=== PATIENT | male | born 1975 | race Caucasian/White ===

== ENCOUNTER 2016-12-16 16:52 | Inpatient (IN) | payer SELFPAY ==
--- NOTE | 2016-12-16 17:41 | EDM.PDOC ---
ED HPI GENERAL MEDICAL PROBLEM - General Chief Complaint: Drug or Alcohol Abuse Stated Complaint: SENT OVER FROM CLINIC Time Seen by Provider: 12/16/16 17:17 Source of Information: Reports: Patient, Family, RN Notes Reviewed History Limitations: Reports: No Limitations - History of Present Illness INITIAL COMMENTS - FREE TEXT/NARRATIVE: 41-year-old gentleman presents emergency department a question of drug overdose he denies this however family is concerned he may have taken this 30 tablets of Xanax 0.25 for a total of 7.5 mg. He does admit to being somnolent and more fatigue after starting medication prescription was written for 0.25 mg by mouth three a day when necessary for anxiety and panic attacks, he also admits to having chest pain for the last several months estimated pill count: possible 30 xanax total of 7.5 mg possible 22 tables of 25 mg vistral for a total of 550 mg possible gabapention unknown amount Discussed case with poison control recommended to routine labs supportive care repeat EKG in 2-3 hours for monitoring of QRS - Related Data Allergies Allergy/AdvReac Type Severity Reaction Status Date / Time aspirin Allergy Other Verified 12/16/16 17:00 flu vaccine Allergy Other Uncoded 12/16/16 17:00 Home Meds: Home Meds ALPRAZolam [Alprazolam] 1 tab PO TID PRN 12/16/16 [History] Acetaminophen [Tylenol Extra Strength] 3 tab PO ASDIRECTED PRN 12/16/16 [History ] Chlorthalidone 25 mg PO DAILY 12/16/16 [History] FLUoxetine [PROzac] 3 tab PO DAILY 12/16/16 [History] Gabapentin [Neurontin] 300 mg PO TID 12/16/16 [History] Ibuprofen 600 mg PO TID 12/16/16 [History] Omeprazole 40 mg PO DAILY 12/16/16 [History] Potassium Chloride [Potassium Chloride] 1 tab PO DAILY 12/16/16 [History] amLODIPine [Norvasc] 5 mg PO DAILY 12/16/16 [History] busPIRone [Buspar] 1 tab PO BID 12/16/16 [History] hydrOXYzine Pamoate [Hydroxyzine Pamoate] 1 cap PO TID PRN 12/16/16 [History] Past Medical History Cardiovascular History: Reports: High Cholesterol, Hypertension Respiratory History: Reports: Asthma, Sleep Apnea, Other (See Below) Other Respiratory History: hx of tracheostomy Neurological History: Reports: Other (See Below) Other Neuro History: guillan barre. Psychiatric History: Reports: Addiction, Anxiety Social & Family History - Tobacco Use Smoking Status *Q: Former Smoker Used Tobacco, but Quit: Yes Month Tobacco Last Used: 0 - Recreational Drug Use Recreational Drug Use: Yes ED ROS GENERAL - Review of Systems Review Of Systems: See Below Constitutional: Reports: Fatigue, Other (Somnolent) HEENT: Reports: No Symptoms Respiratory: Reports: No Symptoms Cardiovascular: Reports: Chest Pain GI/Abdominal: Reports: No Symptoms : Reports: No Symptoms Musculoskeletal: Reports: No Symptoms Skin: Reports: No Symptoms Neurological: Reports: No Symptoms ED EXAM, BEHAVIORAL HEALTH - Physical Exam Exam: See Below Text/Narrative:: General: Male, not in any distress, alert and oriented x3 HEENT: head is atraumatic normocephalic, eyes pupils equal round reactive to light, sclera clear no conjunctivitis appreciated. Ears tympanic membranes clear and luna landmarks and light reflex are present bilaterally canals are clear. Nose no septal deviation, nares are clear, no blood present. Mouth mucosa is moist and pink no erythema or exudate noted in soft palate, tongue is midline uvula is midline, dentition is intact. Neck: Supple no thyromegaly no tracheal deviation. Nodes: Cervical nodes subclavicular nodes nontender no palpable lymphadenopathy noted. Lungs: clear to auscultation bilaterally with symmetrical respirations, no adventitious noise appreciated. CV: Regular rate and rhythm S1 and S2 appreciated no murmurs rubs or gallops noted. Abdomen: Soft, obese, nontender, no palpable masses or organomegaly appreciated , no distention no guarding bowel sounds are present, . Neuro: Cranial nerves II through XII grossly intact Skin: Warm and dry, intact Extremities: No lower extremity edema appreciated, COURSE, BEHAVIORAL HEALTH COMP - Course Vital Signs: Last Vital Signs Temp 98.9 F 12/16/16 16:56 Pulse 85 12/16/16 16:56 Resp 18 12/16/16 16:56 BP 127/67 12/16/16 16:56 Pulse Ox 96 12/16/16 16:56 Orders, Labs, Meds: Active Orders 24 hr Category Date Time Status Cardiac Monitoring [RC] .As Directed Care 12/16/16 17:27 Active EKG Documentation Completion [RC] ASDIRECTED Care 12/16/16 17:27 Active Peripheral IV Care [RC] . DIRECTED Care 12/16/16 18:04 Active DRUG SCREEN, URINE [URCHEM] Stat Lab 12/16/16 17:26 Uncollected SALICYLATE [CHEM] Stat Lab 12/16/16 18:03 Received UA W/MICROSCOPIC [URIN] Stat Lab 12/16/16 17:26 Uncollected Potassium Chloride [KCL 20 MEQ in Water 100 ML] 20 meq Med 12/16/16 18:04 Active Premix Bag 1 bag IV ONETIME Sodium Chloride 0.9% [Saline Flush] Med 12/16/16 18:04 Active 10 ml FLUSH ASDIRECTED PRN Peripheral IV Insertion Adult [OM.PC] Urgent Oth 12/16/16 18:04 Ordered EKG 12 Lead [EK] Stat Ther 12/16/16 17:27 Ordered Medication Orders Potassium Chloride 20 meq/ (Premix) 100 mls @ 50 mls/hr IV ONETIME ONE Stop: 12/16/16 20:03 Sodium Chloride (Saline Flush) 10 ml FLUSH ASDIRECTED PRN PRN Reason: Keep Vein Open Laboratory Tests 12/16/16 12/16/16 12/16/16 Range/Units 17:26 17:26 18:03 WBC 10.2 (4.5-11.0) K/uL RBC 4.52 (4.30-5.90) M/uL Hgb 13.0 (12.0-15.0) g/dL Hct 38.6 L (40.0-54.0) % MCV 85 (80-98) fL MCH 29 (27-31) pg MCHC 34 (32-36) % Plt Count 338 (150-400) K/uL Neut % (Auto) 60 (36-66) % Lymph % (Auto) 24 (24-44) % [place] % (Auto) 10 H (2-6) % Eos % (Auto) 6 H (2-4) % Baso % (Auto) 1 (0-1) % Sodium 141 (140-148) mmol/L Potassium 2.9 L* (3.6-5.2) mmol/L Chloride 102 (100-108) mmol/L Carbon Dioxide 30 (21-32) mmol/L Anion Gap 11.9 (5.0-14.0) mmol/L BUN 18 (7-18) mg/dL Creatinine 1.2 (0.8-1.3) mg/dL Est Cr Clr Drug Dosing 89.70 mL/min Estimated GFR (MDRD) > 60 (>60) Glucose 115 H (74-106) mg/dL Calcium 8.0 L (8.5-10.1) mg/dL Total Bilirubin 0.5 (0.2-1.0) mg/dL AST 28 (15-37) U/L ALT 42 (12-78) U/L Alkaline Phosphatase 82 (46-116) U/L Troponin I < 0.017 (0.000-0.056) ng/mL Total Protein 7.1 (6.4-8.2) g/dL Albumin 3.7 (3.4-5.0) g/dL Globulin 3.4 (2.3-3.5) g/dL Albumin/Globulin Ratio 1.1 L (1.2-2.2) Acetaminophen 0.0 L (10.0-30.0) ug/mL Medications Generic Name Dose Route Start Last Admin Trade Name Freq PRN Reason Stop Dose Admin Potassium Chloride 20 meq/ 100 mls @ 50 mls/hr 12/16/16 18:04 Premix IV 12/16/16 20:03 ONETIME ONE Sodium Chloride 10 ml 12/16/16 18:04 Saline Flush FLUSH ASDIRECTED PRN Keep Vein Open Discontinued Medications Generic Name Dose Route Start Last Admin Trade Name Freq PRN Reason Stop Dose Admin Potassium Chloride 20 meq 12/16/16 18:04 Klor-Con M20 PO 12/16/16 18:05 ONETIME ONE Departure - Departure Time of Disposition: 18:44 Disposition: Admitted As Inpatient 64 Condition: good Clinical Impression: Benzodiazepine overdose Qualifiers: Encounter type: initial encounter Injury intent: undetermined intent Qualified Code(s): T42.4X4A - Poisoning by benzodiazepines, undetermined, initial encounter - Discharge Information Forms: ED Department Discharge - My Orders Last 24 Hours: My Active Orders 12/16/16 17:26 DRUG SCREEN, URINE [URCHEM] Stat UA W/MICROSCOPIC [URIN] Stat 12/16/16 17:27 Cardiac Monitoring [RC] .As Directed EKG Documentation Completion [RC] ASDIRECTED EKG 12 Lead [EK] Stat 12/16/16 18:03 SALICYLATE [CHEM] Stat 12/16/16 18:04 Peripheral IV Care [RC] . DIRECTED Potassium Chloride [KCL 20 MEQ in Water 100 ML] 20 meq Premix Bag 1 bag IV ONETIME Sodium Chloride 0.9% [Saline Flush] 10 ml FLUSH ASDIRECTED PRN Peripheral IV Insertion Adult [OM.PC] Urgent - Assessment/Plan Last 24 Hours: My Active Orders 12/16/16 17:26 DRUG SCREEN, URINE [URCHEM] Stat UA W/MICROSCOPIC [URIN] Stat 12/16/16 17:27 Cardiac Monitoring [RC] .As Directed EKG Documentation Completion [RC] ASDIRECTED EKG 12 Lead [EK] Stat 12/16/16 18:03 SALICYLATE [CHEM] Stat 12/16/16 18:04 Peripheral IV Care [RC] . DIRECTED Potassium Chloride [KCL 20 MEQ in Water 100 ML] 20 meq Premix Bag 1 bag IV ONETIME Sodium Chloride 0.9% [Saline Flush] 10 ml FLUSH ASDIRECTED PRN Peripheral IV Insertion Adult [OM.PC] Urgent Plan: Assessment Acuity = acute Site and laterality = possible drug overdose of Xanax Etiology = unclear etiology Manifestations = somnolence Location of injury = home Lab values = CBC unremarkable potassium low at 2.9 consistent hypokalemia urinalysis and drug screen are pending EKG does show right bundle branch block no acute prolongation Plan Discussed case with hospitalist personnel records clerk he agreed to come and evaluate the patient ED for possible admission and further observation plan repeat EKG in 2- 3 hours Patient was in agreement with the plan all questions were answered, they were instructed to return to the emergency department or call for worsening symptoms. This note was dictated using [employer] voice recognition software please call with any questions.
[2016-12-16] MEDS ORDERED: Potassium Chloride 20 MEQ Tab.ER PO ONE ×3 (18:04→23:55)
[2016-12-16] MEDS ORDERED: Sodium Chloride 0.9% 10 ML Syringe FLUSH PRN ×2 (18:04→21:34)
[2016-12-16] MEDS ORDERED: Potassium Chloride 20 MEQ in Premix Bag 1 BAG IV ONE (18:04)
--- NOTE | 2016-12-16 20:12 | PCM.HP ---
H&P History of Present Illness - General Date of Service: 12/16/16 Admit Problem/Dx: Admission Diagnosis/Problem Admission Diagnosis/Problem Drug overdose Source of Information: Patient, Family, Provider, RN Notes Reviewed History Limitations: Reports: Altered Mental Status (Drug overdose) - History of Present Illness Initial Comments - Free Text/Narative: This patient is a 41-year-old gentleman was admitted through the emergency department to the intensive care unit for further evaluation and management of polydrug overdose. 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 Earlier today when he was eating with his fell asleep several times during the meal. She brought him in the clinic for evaluation because of his marked sedation and lethargy he was referred to the emergency department for further evaluation. There is concern about probable drug overdose and as to whether this was intentional as a suicide attempt or just a means to provide some relief from his ongoing pain. There are several visceral tablets there on account of 4, several gabapentin tablets unaccounted for and his prescription for Xanax is missing. Estimated that he may have taken up to 7-1/2 mg of Xanax, 22 tablets of Vistaril and up to 5 tablets of gabapentin. Was in control is been contacted and they've recommended that he be monitored and an EKG be repeated in a few hours to make sure that there is no significant QT prolongation. Patient reports that he did take extra medications but only admits to taking extra gabapentin as well as the Xanax because of his symptoms. - Related Data Allergies/Adverse Reactions: Allergies Allergy/AdvReac Type Severity Reaction Status Date / Time aspirin Allergy Other Verified 12/16/16 17:00 flu vaccine Allergy Other Uncoded 12/16/16 17:00 Home Medications: Home Meds ALPRAZolam [Alprazolam] 1 tab PO TID PRN 12/16/16 [History] Acetaminophen [Tylenol Extra Strength] 3 tab PO ASDIRECTED PRN 12/16/16 [History ] Chlorthalidone 25 mg PO DAILY 12/16/16 [History] FLUoxetine [PROzac] 3 tab PO DAILY 12/16/16 [History] Gabapentin [Neurontin] 300 mg PO TID 12/16/16 [History] Ibuprofen 600 mg PO TID 12/16/16 [History] Omeprazole 40 mg PO DAILY 12/16/16 [History] Potassium Chloride [Potassium Chloride] 1 tab PO DAILY 12/16/16 [History] amLODIPine [Norvasc] 5 mg PO DAILY 12/16/16 [History] busPIRone [Buspar] 1 tab PO BID 12/16/16 [History] hydrOXYzine Pamoate [Hydroxyzine Pamoate] 1 cap PO TID PRN 12/16/16 [History] Past Medical History Cardiovascular History: Reports: High Cholesterol, Hypertension Respiratory History: Reports: Asthma, Sleep Apnea, Other (See Below) Other Respiratory History: hx of tracheostomy Neurological History: Reports: Other (See Below) Other Neuro History: guillan barre. Psychiatric History: Reports: Addiction, Anxiety Social & Family History - Tobacco Use Smoking Status *Q: Former Smoker Used Tobacco, but Quit: Yes Month Tobacco Last Used: 0 - Recreational Drug Use Recreational Drug Use: Yes H&P Review of Systems - Review of Systems: Review Of Systems: See Below General: Reports: No Symptoms HEENT: Reports: No Symptoms Pulmonary: Reports: No Symptoms Cardiovascular: Reports: No Symptoms Gastrointestinal: Reports: No Symptoms Genitourinary: Reports: No Symptoms Musculoskeletal: Reports: Leg Pain, Foot Pain Skin: Reports: No Symptoms Psychiatric: Reports: Anxiety Neurological: Reports: No Symptoms Hematologic/Lymphatic: Reports: No Symptoms Immunologic: Reports: No Symptoms Exam - Exam Exam: See Below - Vital Signs Vital Signs: Last Vital Signs Temp 97.7 F 12/16/16 17:57 Pulse 77 12/16/16 18:45 Resp 18 12/16/16 16:56 BP 111/49 L 12/16/16 18:45 Pulse Ox 97 12/16/16 18:45 Weight: 284 lb - Exam General: Oriented, Cooperative HEENT: Conjunctiva Clear, Hearing Intact, Mucosa Moist & [place], Nares Patent, Normal Nasal Septum, Posterior Pharynx Clear, Pupils Equal, Pupils Reactive Neck: Supple, Trachea Midline, +2 Carotid Pulse wo Bruit Lungs: Clear to Auscultation, Normal Respiratory Effort Cardiovascular: Regular Rate, Regular Rhythm, Normal S1, Normal S2 Abdomen: Normal Bowel Sounds, Soft Back Exam: Normal Inspection, Full Range of Motion, NT Extremities: 3, Normal Inspection, 10 Skin: Warm, Dry, Intact Neurological: Cranial Nerves Intact. No: Focal Deficit Neuro Extensive - Mental Status: Oriented x3, Normal Cognition, Memory Intact - Patient Data Lab Results last 24 hrs: Laboratory Results - last 24 hr 12/16/16 12/16/16 12/16/16 Range/Units 17:26 17:26 18:03 WBC 10.2 (4.5-11.0) K/uL RBC 4.52 (4.30-5.90) M/uL Hgb 13.0 (12.0-15.0) g/dL Hct 38.6 L (40.0-54.0) % MCV 85 (80-98) fL MCH 29 (27-31) pg MCHC 34 (32-36) % Plt Count 338 (150-400) K/uL Neut % (Auto) 60 (36-66) % Lymph % (Auto) 24 (24-44) % [place] % (Auto) 10 H (2-6) % Eos % (Auto) 6 H (2-4) % Baso % (Auto) 1 (0-1) % Sodium 141 (140-148) mmol/L Potassium 2.9 L* (3.6-5.2) mmol/L Chloride 102 (100-108) mmol/L Carbon Dioxide 30 (21-32) mmol/L Anion Gap 11.9 (5.0-14.0) mmol/L BUN 18 (7-18) mg/dL Creatinine 1.2 (0.8-1.3) mg/dL Est Cr Clr Drug Dosing 89.70 mL/min Estimated GFR (MDRD) > 60 (>60) Glucose 115 H (74-106) mg/dL Calcium 8.0 L (8.5-10.1) mg/dL Total Bilirubin 0.5 (0.2-1.0) mg/dL AST 28 (15-37) U/L ALT 42 (12-78) U/L Alkaline Phosphatase 82 (46-116) U/L Troponin I < 0.017 (0.000-0.056) ng/mL Total Protein 7.1 (6.4-8.2) g/dL Albumin 3.7 (3.4-5.0) g/dL Globulin 3.4 (2.3-3.5) g/dL Albumin/Globulin Ratio 1.1 L (1.2-2.2) Urine Color Urine Appearance Urine pH (4.5-8.0) Ur Specific [place] (1.008-1.030) Urine Protein (NEGATIVE) mg/dL Urine Glucose (UA) (NEGATIVE) mg/dL Urine Ketones (NEGATIVE) mg/dL Urine Occult Blood (NEGATIVE) Urine Nitrite (NEGAITVE) Urine Bilirubin (NEGATIVE) Urine Urobilinogen (NORMAL) mg/dL Ur Leukocyte Esterase (NEGATIVE) Urine RBC (0-5) Urine WBC (0-5) Ur Epithelial Cells Amorphous Sediment Urine Bacteria Urine Mucus Salicylates (2.0-20.0) mg/dL Urine Opiates Screen (NEGATIVE) Ur Oxycodone Screen (NEGATIVE) Urine Methadone Screen (NEGATIVE) Ur Propoxyphene Screen (NEGATIVE) Acetaminophen 0.0 L (10.0-30.0) ug/mL Ur Barbiturates Screen (NEGATIVE) Ur Tricyclics Screen (NEGATIVE) Ur Phencyclidine Scrn (NEGATIVE) Ur Amphetamine Screen (NEGATIVE) U Methamphetamines Scrn (NEGATIVE) Urine MDMA Screen (NEGATIVE) U Benzodiazepines Scrn (NEGATIVE) U Cocaine Metab Screen (NEGATIVE) U Marijuana (THC) Screen (NEGATIVE) 12/16/16 12/16/16 12/16/16 Range/Units 18:03 18:50 18:50 WBC (4.5-11.0) K/uL RBC (4.30-5.90) M/uL Hgb (12.0-15.0) g/dL Hct (40.0-54.0) % MCV (80-98) fL MCH (27-31) pg MCHC (32-36) % Plt Count (150-400) K/uL Neut % (Auto) (36-66) % Lymph % (Auto) (24-44) % [place] % (Auto) (2-6) % Eos % (Auto) (2-4) % Baso % (Auto) (0-1) % Sodium (140-148) mmol/L Potassium (3.6-5.2) mmol/L Chloride (100-108) mmol/L Carbon Dioxide (21-32) mmol/L Anion Gap (5.0-14.0) mmol/L BUN (7-18) mg/dL Creatinine (0.8-1.3) mg/dL Est Cr Clr Drug Dosing mL/min Estimated GFR (MDRD) (>60) Glucose (74-106) mg/dL Calcium (8.5-10.1) mg/dL Total Bilirubin (0.2-1.0) mg/dL AST (15-37) U/L ALT (12-78) U/L Alkaline Phosphatase (46-116) U/L Troponin I (0.000-0.056) ng/mL Total Protein (6.4-8.2) g/dL Albumin (3.4-5.0) g/dL Globulin (2.3-3.5) g/dL Albumin/Globulin Ratio (1.2-2.2) Urine Color Yellow Urine Appearance Clear Urine pH 7.0 (4.5-8.0) Ur Specific [place] 1.010 (1.008-1.030) Urine Protein Negative (NEGATIVE) mg/dL Urine Glucose (UA) Normal (NEGATIVE) mg/dL Urine Ketones Negative (NEGATIVE) mg/dL Urine Occult Blood Negative (NEGATIVE) Urine Nitrite Negative (NEGAITVE) Urine Bilirubin Negative (NEGATIVE) Urine Urobilinogen Normal (NORMAL) mg/dL Ur Leukocyte Esterase Negative (NEGATIVE) Urine RBC 0-5 (0-5) Urine WBC Not seen (0-5) Ur Epithelial Cells Not seen Amorphous Sediment Not seen Urine Bacteria Rare Urine Mucus Not seen Salicylates 0.5 L (2.0-20.0) mg/dL Urine Opiates Screen Negative (NEGATIVE) Ur Oxycodone Screen Negative (NEGATIVE) Urine Methadone Screen Negative (NEGATIVE) Ur Propoxyphene Screen Negative (NEGATIVE) Acetaminophen (10.0-30.0) ug/mL Ur Barbiturates Screen Negative (NEGATIVE) Ur Tricyclics Screen Negative (NEGATIVE) Ur Phencyclidine Scrn Negative (NEGATIVE) Ur Amphetamine Screen Negative (NEGATIVE) U Methamphetamines Scrn Negative (NEGATIVE) Urine MDMA Screen Negative (NEGATIVE) U Benzodiazepines Scrn Positive H (NEGATIVE) U Cocaine Metab Screen Negative (NEGATIVE) U Marijuana (THC) Screen Negative (NEGATIVE) Result Diagrams: 12/16/16 17:26 12/16/16 17:26 *Q Meaningful Use (ADM) - VTE *Q VTE Criteria *Q: - VTE Risk Assess *Q Each Risk Factor Represents 1 Point: Age 41 - 59 years, Obesity (BMI greater than 30) Total Score 1 Point Risk Factors: 2 Each Risk Factor Represents 2 Points: None Total Score 2 Point Risk Factors: 0 Each Risk Factor Represents 3 Points: None Total Score 3 Point Risk Factors: 0 Each Risk Factor Represents 5 Points: None Total Score 5 Point Risk Factors: 0 Venous Thromboembolism Risk Factor Score *Q: 2 - Stroke *Q Stroke Criteria *Q: - AMI *Q AMI Criteria *Q: Problem List Initiated/Reviewed/Updated: Yes Orders Last 24hrs: Active Orders 24 hr Category Date Time Status Patient Status Manage Transfer [TRANSFER] Routine ADT 12/16/16 19:55 Active Cardiac Monitoring [RC] .As Directed Care 12/16/16 17:27 Active Cardiac Monitoring [RC] .As Directed Care 12/16/16 19:55 Active EKG Documentation Completion [RC] ASDIRECTED Care 12/16/16 17:27 Active EKG Documentation Completion [RC] ASDIRECTED Care 12/16/16 18:45 Active Peripheral IV Care [RC] . DIRECTED Care 12/16/16 18:04 Active Sodium Chloride 0.9% [Saline Flush] Med 12/16/16 18:04 Active 10 ml FLUSH ASDIRECTED PRN Peripheral IV Insertion Adult [OM.PC] Urgent Oth 12/16/16 18:04 Ordered Resuscitation Status Routine Resus Stat 12/16/16 19:57 Ordered EKG 12 Lead [EK] Routine Ther 12/16/16 20:00 Ordered EKG 12 Lead [EK] Stat Ther 12/16/16 17:27 Ordered Medication Orders Sodium Chloride (Saline Flush) 10 ml FLUSH ASDIRECTED PRN PRN Reason: Keep Vein Open Last Admin: 12/16/16 19:09 Dose: 10 ml Assessment/Plan Comment:: ASSESSMENT AND PLAN DRUG OVERDOSE-unclear at this time as to exactly what he took and how much. He was very lethargic earlier in the afternoon at home and while at the clinic. Sedated to the point that he fell asleep while eating. Currently denies any suicidal ideation or intent -Repeat EKG at 9 PM -Cardiac monitoring in ICU -Suicide precautions -72 hour hold -Crisis team consult in a.m. for psychological assessment HYPOKALEMIA-likely secondary to the chlorthalidone -IV and oral potassium replacement -Repeat potassium level in the a.m. MAINTENANCE ISSUES -DVT prophylaxis; ambulation -GI prophylaxis; continue outpatient PPI therapy -[place] catheter; not required -Nutrition; regular diet -Nicotine dependence; not required CODE STATUS-FULL CODE ADMISSION STATUS-patient will be admitted to inpatient status, expect at least a 2 night hospital stay for evaluation and management of problems as outlined above. At the time of this admission I do not reasonably expected evaluation and management of this problem will require more than a 96 hour hospital stay. DISPOSITION-anticipate discharge to home after the hospital stay. PRIMARY CARE PROVIDER-[place] Peralta
[2016-12-16] MEDS ORDERED: Melatonin 3 MG Tab PO SCH (21:34)
[2016-12-16] MEDS ORDERED: Ondansetron 4 MG/2 ML SDV IV PRN (21:34)
[2016-12-16] MEDS ORDERED: Acetaminophen 325 MG Tab PO PRN (21:34)
[2016-12-16] MEDS ORDERED: Potassium Chloride 20 MEQ Tab.ER ONE (21:42)
[2016-12-16] MEDS: busPIRone 10 MG Tab PO SCH (21:49)
[2016-12-16] MEDS: Ibuprofen 600 MG Tab PO SCH (21:53)
[2016-12-17] MEDS ORDERED: Pantoprazole 40 MG Tab.CR PO SCH (07:30)
[2016-12-17] MEDS ORDERED: Potassium Chloride 20 MEQ Tab.ER PO SCH (08:00)
[2016-12-17] MEDS: Ibuprofen 600 MG Tab PO SCH (08:19)
[2016-12-17] MEDS: busPIRone 10 MG Tab PO SCH (08:19)
[2016-12-17] MEDS ORDERED: amLODIPine 5 MG Tab PO SCH (09:00)
[2016-12-17] MEDS ORDERED: Chlorthalidone 25 MG Tab PO SCH (09:00)
[2016-12-17] MEDS ORDERED: FLUoxetine 20 MG Cap PO SCH (09:00)
[2016-12-17] MEDS ORDERED: Albuterol 8 GM Inhaler INH PRN (10:17)
[2016-12-17] MEDS ORDERED: LORazepam 0.5 MG Tab PO PRN (10:40)
[2016-12-17 11:23] VITALS: BP 167/89
[2016-12-17] MEDS ORDERED: Formoterol/Mometasone 200-5 MCG 8.8 GM Inhaler IH SCH ×2 (12:00)
--- NOTE | 2016-12-17 13:06 | PCM.DCSUM1 ---
Discharge Summary - Hospital Course Brief History: This patient is a 41-year-old gentleman who was admitted through the emergency room on a 72 hour hold because of a drug overdose. - Discharge Data Discharge Date: 12/17/16 Discharge Disposition: Home, Self-Care 01 Condition: Good - Discharge Diagnosis/Problem(s) (1) Drug overdose SNOMED Code(s): 91496067 ICD Code: T50.901A - POISONING BY UNSP DRUG/MEDS/BIOL SUBST, ACCIDENTAL, INIT Status: Acute Current Visit: Yes (2) Anxiety SNOMED Code(s): 16818920 ICD Code: F41.9 - ANXIETY DISORDER, UNSPECIFIED Status: Acute Current Visit: Yes - Patient Summary/Data Hospital Course: This patient is a 41-year-old gentleman who presented to the emergency department because of marked lethargy and over sedation. On evaluation was felt that he likely taken an overdose of gabapentin, Xanax, and Vistaril. Exact amounts the medication taken were unknown. At the time of admission patient had improved significantly with increased level of consciousness. At that time he denied any suicidal ideation or intent. Because of the overdose it was felt necessary that he be monitored overnight for any side effects of the medication and was placed on a 72 hour hold until psychological assessment could be obtained. He remained stable through the night, followup EKG showed no evidence of QT prolongation. He was seen and evaluated by a member of the crisis team for psychological assessment. They felt he was not at risk for suicide and did not have significant suicidal ideation. Activity will be as tolerated and he will resume his usual diet. Followup appointment will be scheduled with his primary care provider within one week. Followup appointment will be scheduled with mental health provider within one week. - Patient Instructions Diet: Usual Diet as Tolerated Activity: As Tolerated Other/Special Instructions: Schedule followup appointment with mental health provider within one week. Schedule followup appointment with primary care provider within one week. - Discharge Plan Home Medications: Home Meds ALPRAZolam [Alprazolam] 1 tab PO TID PRN 12/16/16 [History] Acetaminophen [Tylenol Extra Strength] 3 tab PO ASDIRECTED PRN 12/16/16 [History ] Chlorthalidone 25 mg PO DAILY 12/16/16 [History] FLUoxetine [PROzac] 3 tab PO DAILY 12/16/16 [History] Gabapentin [Neurontin] 300 mg PO TID 12/16/16 [History] Ibuprofen 600 mg PO TID 12/16/16 [History] Omeprazole 40 mg PO DAILY 12/16/16 [History] Potassium Chloride 1 tab PO DAILY 12/16/16 [History] amLODIPine [Norvasc] 5 mg PO DAILY 12/16/16 [History] busPIRone [Buspar] 1 tab PO BID 12/16/16 [History] hydrOXYzine Pamoate [Hydroxyzine Pamoate] 1 cap PO TID PRN 12/16/16 [History] Albuterol [Ventolin HFA] 1 puff INH Q4HR PRN 12/17/16 [History] Budesonide/Formoterol Fumarate [Symbicort 160-4.5 Mcg Inhaler] 2 puff IH BID [History] Referrals: Modesto Quinteros PA [Primary Care Provider] - - Patient Data Vitals - Most Recent: Last Vital Signs Temp 98.2 F 12/17/16 07:37 Pulse 71 12/17/16 11:23 Resp 14 12/17/16 11:23 BP 167/89 H 12/17/16 11:23 Pulse Ox 97 12/17/16 11:23 Weight - Most Recent: 284 lb I&O - Last 24 hours: Intake & Output 12/16/16 12/17/16 12/17/16 22:59 06:59 14:59 Intake Total 1000 Output Total 1600 600 Balance -600 -600 Lab Results - Last 24 hrs: Laboratory Results - last 24 hr 12/17/16 Range/Units 05:14 Sodium 143 (140-148) mmol/L Potassium 3.7 (3.6-5.2) mmol/L Chloride 106 (100-108) mmol/L Carbon Dioxide 29 (21-32) mmol/L Anion Gap 7.6 (5.0-14.0) mmol/L BUN 16 (7-18) mg/dL Creatinine 1.0 (0.8-1.3) mg/dL Est Cr Clr Drug Dosing 107.64 mL/min Estimated GFR (MDRD) > 60 (>60) Glucose 125 H (74-106) mg/dL Calcium 8.3 L (8.5-10.1) mg/dL Med Orders - Current: Current Medications Acetaminophen (Tylenol) 650 mg PO Q4H PRN PRN Reason: Pain (Mild 1-3)/fever Albuterol (Ventolin Hfa) 0 gm INH Q4H PRN PRN Reason: Dyspepsia Amlodipine Besylate (Norvasc) 5 mg PO DAILY [facility] Last Admin: 12/17/16 08:20 Dose: 5 mg Buspirone HCl (Buspar) 10 mg PO BID [facility] Last Admin: 12/17/16 08:19 Dose: 10 mg Chlorthalidone (Chlorthalidone) 25 mg PO DAILY [facility] Last Admin: 12/17/16 08:20 Dose: 25 mg Fluoxetine HCl (Prozac) 60 mg PO DAILY [facility] Last Admin: 12/17/16 08:19 Dose: 60 mg Ibuprofen (Motrin) 600 mg PO TID [facility] Last Admin: 12/17/16 08:19 Dose: 600 mg Lorazepam (Ativan) 0.5 mg PO Q4H PRN PRN Reason: Anxiety Melatonin (Melatonin) 9 mg PO BEDTIME [facility] Last Admin: 12/16/16 21:50 Dose: 9 mg Mometasone Furoate/Formoterol Fumar (Dulera 200-5 Mcg) 2 puff IH BIDRT [facility] Ondansetron HCl (Zofran) 4 mg IV Q4H PRN PRN Reason: Nausea/Vomiting Pantoprazole Sodium (Protonix) 40 mg PO ACBREAKFAST [facility] Last Admin: 12/17/16 08:20 Dose: 40 mg Potassium Chloride (Klor-Con M20) 20 meq PO DAILY@0800 [facility] Last Admin: 12/17/16 08:20 Dose: 20 meq Sodium Chloride (Saline Flush) 10 ml FLUSH ASDIRECTED PRN PRN Reason: Keep Vein Open Discontinued Medications Potassium Chloride 20 meq/ (Premix) 100 mls @ 50 mls/hr IV ONETIME ONE Stop: 12/16/16 20:03 Last Admin: 12/16/16 19:03 Dose: 50 mls/hr Lidocaine HCl (Xylocaine-Mpf 1%) 2 ml INJECT ONETIME ONE Stop: 12/16/16 18:52 Last Admin: 12/16/16 19:01 Dose: 2 ml Potassium Chloride (Klor-Con M20) 20 meq PO ONETIME ONE Stop: 12/16/16 18:05 Last Admin: 12/16/16 19:06 Dose: 20 meq Potassium Chloride (Klor-Con M20) 40 meq PO ONETIME ONE Stop: 12/16/16 21:35 Last Admin: 12/16/16 21:43 Dose: 40 meq Potassium Chloride (Klor-Con M20) 40 meq PO ONETIME ONE Stop: 12/16/16 23:56 Last Admin: 12/17/16 00:03 Dose: 40 meq Potassium Chloride (Klor-Con M20) Confirm Administered Dose 40 meq .ROUTE .STK- MED ONE Stop: 12/16/16 21:43 Last Admin: 12/16/16 21:53 Dose: Not Given Sodium Chloride (Saline Flush) 10 ml FLUSH ASDIRECTED PRN PRN Reason: Keep Vein Open Last Admin: 12/16/16 19:09 Dose: 10 ml *Q Meaningful Use (DIS) - VTE *Q VTE Criteria *Q: - Stroke *Q Stroke Criteria *Q: - AMI *Q AMI Criteria *Q:
== END 2016-12-17 14:46 | disposition home or self-care (01) | DRG 918 ==
LOC: JP.ED 16:52 → JP.ICU 19:55
PROVIDERS: ADMIT Hospitalist; ATTEND Hospitalist
DX: T42.4X4A Poisoning by benzodiazepines, undetermined, initial encounter (principal); G61.0 Guillain-Barre syndrome; T43.594A Poisoning by other antipsychotics and neuroleptics, undetermined, initial encounter; T42.6X4A Poisoning by other antiepileptic and sedative-hypnotic drugs, undetermined, initial encounter; R53.83 Other fatigue; Y92.009 Unspecified place in unspecified non-institutional (private) residence as the place of occurrence of the external cause; F41.9 Anxiety disorder, unspecified; E87.6 Hypokalemia; I10 Essential (primary) hypertension; Z87.891 Personal history of nicotine dependence; G89.29 Other chronic pain; Z88.6 Allergy status to analgesic agent; Z88.7 Allergy status to serum and vaccine
CPT/HCPCS: 36415; 80048; 80053; 80305; 81001; 84484; 85025; 93005; 93010; 96360; 96361; 99223-AI; 99238; 99285; 99285-25; A9270-GY; G0480; J3480; J7050

== ENCOUNTER 2018-11-17 18:38 | Emergency (ER) | payer OTHER ==
[2018-11-17] MEDS ORDERED: Lactated Ringers 1,000 ML IV ONE (18:59)
--- NOTE | 2018-11-17 19:04 | EDM.PDOC ---
ED HPI GENERAL MEDICAL PROBLEM - General Chief Complaint: Chest Pain Stated Complaint: CHEST PAIN Time Seen by Provider: 11/17/18 18:56 Source of Information: Reports: Patient, Old Records History Limitations: Reports: Other (took a "Viagara-like pill" given to him by a friend, doesn't know exactly what it contained.) - History of Present Illness INITIAL COMMENTS - FREE TEXT/NARRATIVE: 43 yo male here with mild chest tightness and a brief syncopal spell at home before arrival. Got up from the dinner table to bring his plate to the sink and got wobbly, then passed out briefly. He denies any recent fever, vomiting, diarrhea or bleeding. Did take a pill shared with him by a friend, that was supposed to help with erectile dysfunction. Took this shortly before his syncope. He is not on any nitrates that he reports. Is on amlodipine for HTN, has not checked his BP in a few yrs. Has no known cardiac hx. Is a non-smoker. Onset: Today Onset Date: 11/17/18 Onset Time: 18:00 Duration: Minutes:, Improving (only the mild chest tightness persists. ) Location: Reports: Chest Quality: Reports: Pressure Severity: Mild Improves with: Reports: Other (? time) Context: Reports: Other (see HPI) Associated Symptoms: Reports: Chest Pain, Syncope (brief). Denies: Diaphoresis , Fever/Chills, Shortness of Breath Treatments [employer]: Reports: Other (see below) (none) Chest Pain Score (Numeric/FACES): 8 - Related Data Allergies Allergy/AdvReac Type Severity Reaction Status Date / Time aspirin Allergy Other Verified 11/17/18 18:47 Influenza Virus Vaccines Allergy Other Verified 11/17/18 18:47 Home Meds: Home Meds Acetaminophen [Tylenol Extra Strength] 3 tab PO ASDIRECTED PRN 12/16/16 [History ] FLUoxetine [PROzac] 3 tab PO DAILY 12/16/16 [History] Ibuprofen 600 mg PO TID 12/16/16 [History] Omeprazole 40 mg PO DAILY 12/16/16 [History] amLODIPine [Norvasc] 5 mg PO DAILY 12/16/16 [History] Albuterol [Ventolin HFA] 1 puff INH Q4HR PRN 12/17/16 [History] Past Medical History HEENT History: Reports: None Cardiovascular History: Reports: High Cholesterol, Hypertension Respiratory History: Reports: Asthma, Sleep Apnea, Other (See Below) Other Respiratory History: hx of tracheostomy. MRSA in sputum during trach Gastrointestinal History: Reports: None Genitourinary History: Reports: None Musculoskeletal History: Reports: Other (See Below) Other Musculoskeletal History: L knee pain Neurological History: Reports: Other (See Below) Other Neuro History: guillan barre. Psychiatric History: Reports: Addiction, Anxiety, Depression Endocrine/Metabolic History: Reports: None Hematologic History: Reports: None Immunologic History: Reports: None Oncologic (Cancer) History: Reports: None Dermatologic History: Reports: None - Infectious Disease History Infectious Disease History: Reports: MRSA - Past Surgical History Head Surgeries/Procedures: Reports: None Cardiovascular Surgical History: Reports: None Respiratory Surgical History: Reports: None Neurological Surgical History: Reports: None Musculoskeletal Surgical History: Reports: None Social & Family History - Family History Family Medical History: Noncontributory - Caffeine Use Caffeine Use: Reports: None ED ROS GENERAL - Review of Systems Review Of Systems: See Below Constitutional: Reports: No Symptoms HEENT: Reports: No Symptoms Respiratory: Reports: No Symptoms Cardiovascular: Reports: Chest Pain, Lightheadedness, Syncope. Denies: Dyspnea on Exertion, Edema, Orthopnea, Palpitations, PND Endocrine: Reports: No Symptoms GI/Abdominal: Reports: No Symptoms : Reports: No Symptoms Musculoskeletal: Reports: No Symptoms Skin: Reports: No Symptoms Neurological: Reports: No Symptoms Psychiatric: Reports: Anxiety (feels a little like when he has had anxiety attacks, didn't think he looked anxious. ) ED EXAM, GENERAL - Physical Exam Exam: See Below Exam Limited By: No Limitations General Appearance: Alert, WD/WN, No Apparent Distress Eye Exam: Bilateral Eye: Normal Inspection Ears: Normal External Exam, Normal Canal, Hearing Grossly Normal Ear Exam: Bilateral Ear: Auricle Normal, Canal Normal Nose: Normal Inspection, No Blood Throat/Mouth: Normal Inspection, Normal Lips, Normal Oropharynx, Normal Voice, No Airway Compromise Head: Atraumatic, Normocephalic Neck: Normal Inspection Respiratory/Chest: No Respiratory Distress, Lungs Clear, Normal Breath Sounds, No Accessory Muscle Use Cardiovascular: Regular Rate, Rhythm, No Edema GI/Abdominal: Normal Bowel Sounds, Soft, Non-Tender, No Distention Back Exam: Normal Inspection Extremities: Normal Inspection, Normal Range of Motion, Non-Tender, No Pedal Edema Neurological: Alert, Oriented, CN II-XII Intact, Normal Cognition, No Motor/ Sensory Deficits Psychiatric: Normal Affect, Normal Mood Skin Exam: Warm, Dry, Intact, Normal Color, No Rash Lymphatic: No Adenopathy EKG INTERPRETATION EKG Date: 11/17/18 Time: 18:50 Rhythm: NSR Rate (Beats/Min): 86 Smiley: Normal P-Wave: Present QRS: Normal ST-T: Other (? subtle ST depression inferior leads, likely not related to cardiac ischemia.) Comparison: Change From Previous EKG (PAC's now present.) EKG Interpretation Comments: 2nd EKG shows inverted T's in lateral leads, mostly new since EKG on admission. Course - Vital Signs Text/Narrative:: No relief with GI cocktail po, 2nd EKG shows lateral ischemia. Will transfer to [place] via EMS. Accepted by Dr. Gabriela Gambino @ [id number] Last Recorded V/S: Last Vital Signs Temp 35.9 C 11/17/18 18:45 Pulse 86 11/17/18 21:50 Resp 12 11/17/18 21:39 BP 141/81 H 11/17/18 21:50 Pulse Ox 96 11/17/18 21:39 - Orders/Labs/Meds Orders: Active Orders 24 hr Category Date Time Status Cardiac Monitoring [RC] .As Directed Care 11/17/18 18:43 Active EKG Documentation Completion [RC] ASDIRECTED Care 11/17/18 18:43 Active EKG Documentation Completion [RC] ASDIRECTED Care 11/17/18 21:18 Active TROPONIN I [CHEM] Stat Lab 11/17/18 22:00 Received Heparin Sodium/D5W [Heparin 25,000 Units in D5W 500 ML] Med 11/17/18 22:15 Ordered 25,000 units in 500 ml IV TITRATE NS + KCl 20mEq/L [Normal Saline with 20 mEq KCl] 1,000 Med 11/17/18 20:15 Active ml IV ASDIRECTED EKG 12 Lead [EK] Routine Ther 11/17/18 18:43 Ordered EKG 12 Lead [EK] Routine Ther 11/17/18 21:18 Ordered Medication Orders Potassium Chloride/Sodium Chloride (Normal Saline With 20 Meq Kcl) 1,000 mls @ 500 mls/hr IV ASDIRECTED RENE Last Admin: 11/17/18 20:26 Dose: 500 mls/hr Heparin Sodium/Dextrose (Heparin 25,000 Units In D5w 500 Ml) 25,000 units in 500 mls @ 20 mls/hr IV TITRATE RENE Labs: Laboratory Tests 11/17/18 11/17/18 11/17/18 Range/Units 19:06 19:06 19:06 WBC 14.1 H (4.5-11.0) K/uL RBC 4.78 (4.30-5.90) M/uL Hgb 13.2 (12.0-15.0) g/dL Hct 40.8 (40.0-54.0) % MCV 85 (80-98) fL MCH 28 (27-31) pg MCHC 32 (32-36) % Plt Count 372 (150-400) K/uL D-Dimer, Quantitative (0.0-400.0) ng/mL Sodium 141 (140-148) mmol/L Potassium 3.3 L (3.6-5.2) mmol/L Chloride 103 (100-108) mmol/L Carbon Dioxide 29 (21-32) mmol/L Anion Gap 12.3 (5.0-14.0) mmol/L BUN 27 H D (7-18) mg/dL Creatinine 2.2 H D (0.8-1.3) mg/dL Est Cr Clr Drug Dosing 47.92 mL/min Estimated GFR (MDRD) 33 L (>60) Glucose 112 H (74-106) mg/dL Calcium 9.4 (8.5-10.1) mg/dL Magnesium (1.8-2.4) mg/dL Troponin I < 0.017 (0.000-0.056) ng/mL C-Reactive Protein (0.0-0.3) mg/dL Urine Color Urine Appearance Urine pH (4.5-8.0) Ur Specific [place] (1.008-1.030) Urine Protein (NEGATIVE) mg/dL Urine Glucose (UA) (NEGATIVE) mg/dL Urine Ketones (NEGATIVE) mg/dL Urine Occult Blood (NEGATIVE) Urine Nitrite (NEGAITVE) Urine Bilirubin (NEGATIVE) Urine Urobilinogen (NORMAL) mg/dL Ur Leukocyte Esterase (NEGATIVE) Urine RBC (0-5) Urine WBC (0-5) Ur Epithelial Cells Amorphous Sediment Urine Bacteria Urine Mucus Urine Other 11/17/18 11/17/18 11/17/18 Range/Units 19:24 20:10 20:29 WBC (4.5-11.0) K/uL RBC (4.30-5.90) M/uL Hgb (12.0-15.0) g/dL Hct (40.0-54.0) % MCV (80-98) fL MCH (27-31) pg MCHC (32-36) % Plt Count (150-400) K/uL D-Dimer, Quantitative (0.0-400.0) ng/mL Sodium (140-148) mmol/L Potassium (3.6-5.2) mmol/L Chloride (100-108) mmol/L Carbon Dioxide (21-32) mmol/L Anion Gap (5.0-14.0) mmol/L BUN (7-18) mg/dL Creatinine (0.8-1.3) mg/dL Est Cr Clr Drug Dosing mL/min Estimated GFR (MDRD) (>60) Glucose (74-106) mg/dL Calcium (8.5-10.1) mg/dL Magnesium 1.8 (1.8-2.4) mg/dL Troponin I (0.000-0.056) ng/mL C-Reactive Protein 0.37 H (0.0-0.3) mg/dL Urine Color Yellow Urine Appearance Clear Urine pH 5.0 (4.5-8.0) Ur Specific [place] 1.015 (1.008-1.030) Urine Protein 30 H (NEGATIVE) mg/dL Urine Glucose (UA) Normal (NEGATIVE) mg/dL Urine Ketones Negative (NEGATIVE) mg/dL Urine Occult Blood Trace (NEGATIVE) Urine Nitrite Negative (NEGAITVE) Urine Bilirubin Negative (NEGATIVE) Urine Urobilinogen Normal (NORMAL) mg/dL Ur Leukocyte Esterase Negative (NEGATIVE) Urine RBC 0-5 (0-5) Urine WBC 0-5 (0-5) Ur Epithelial Cells Few Amorphous Sediment Not seen Urine Bacteria Not seen Urine Mucus Many Urine Other 11/17/18 Range/Units 21:49 WBC (4.5-11.0) K/uL RBC (4.30-5.90) M/uL Hgb (12.0-15.0) g/dL Hct (40.0-54.0) % MCV (80-98) fL MCH (27-31) pg MCHC (32-36) % Plt Count (150-400) K/uL D-Dimer, Quantitative < 100 (0.0-400.0) ng/mL Sodium (140-148) mmol/L Potassium (3.6-5.2) mmol/L Chloride (100-108) mmol/L Carbon Dioxide (21-32) mmol/L Anion Gap (5.0-14.0) mmol/L BUN (7-18) mg/dL Creatinine (0.8-1.3) mg/dL Est Cr Clr Drug Dosing mL/min Estimated GFR (MDRD) (>60) Glucose (74-106) mg/dL Calcium (8.5-10.1) mg/dL Magnesium (1.8-2.4) mg/dL Troponin I (0.000-0.056) ng/mL C-Reactive Protein (0.0-0.3) mg/dL Urine Color Urine Appearance Urine pH (4.5-8.0) Ur Specific [place] (1.008-1.030) Urine Protein (NEGATIVE) mg/dL Urine Glucose (UA) (NEGATIVE) mg/dL Urine Ketones (NEGATIVE) mg/dL Urine Occult Blood (NEGATIVE) Urine Nitrite (NEGAITVE) Urine Bilirubin (NEGATIVE) Urine Urobilinogen (NORMAL) mg/dL Ur Leukocyte Esterase (NEGATIVE) Urine RBC (0-5) Urine WBC (0-5) Ur Epithelial Cells Amorphous Sediment Urine Bacteria Urine Mucus Urine Other Meds: Medications Generic Name Dose Route Start Last Admin Trade Name Freq PRN Reason Stop Dose Admin Potassium Chloride/Sodium Chloride 1,000 mls @ 500 mls/hr 11/17/18 20:15 20:26 Normal Saline With 20 Meq Kcl IV 500 mls/hr ASDIRECTED RENE Administration Heparin Sodium/Dextrose 25,000 units in 500 mls @ 20 mls/hr 11/17/18 22:15 Heparin 25,000 Units In D5w 500 Ml IV TITRATE RENE 1,000 UNITS/HR Discontinued Medications Generic Name Dose Route Start Last Admin Trade Name Freq PRN Reason Stop Dose Admin Acetaminophen 1,000 mg 11/17/18 20:10 11/17/18 20:34 Tylenol Extra Strength PO 11/17/18 20:11 1,000 mg ONETIME ONE Administration Acetaminophen Confirm 11/17/18 20:25 11/17/18 20:36 Tylenol Extra Strength Administered 11/17/18 20:26 Not Given Dose 1,000 mg .ROUTE .STK-MED ONE Aspirin 324 mg 11/17/18 18:54 11/17/18 19:11 Aspirin PO 11/17/18 18:55 Not Given ONETIME ONE Aspirin 324 mg 11/17/18 21:36 11/17/18 21:48 Aspirin PO 11/17/18 21:37 324 mg ONETIME ONE Administration Clopidogrel Bisulfate 600 mg 11/17/18 21:36 11/17/18 21:50 Plavix PO 11/17/18 21:37 600 mg ONETIME ONE Administration Al Hydroxide/Mg Hydroxide 15 0 ml 11/17/18 20:30 11/17/18 20:36 ml/ Lidocaine HCl 15 ml PO 11/17/18 20:31 30 ml ONETIME ONE Administration Heparin Sodium (Porcine) 5,000 units 11/17/18 21:37 11/17/18 21:50 Heparin Sodium IVPUSH 11/17/18 21:38 5,000 units ONETIME ONE Administration Lactated Ringer's 1,000 mls @ 1,000 mls/hr 11/17/18 18:59 11/17/18 19:09 Ringers, Lactated IV 11/17/18 19:58 1,000 mls/hr BOLUS ONE Administration Metoprolol Tartrate 25 mg 11/17/18 21:37 11/17/18 21:50 Lopressor PO 11/17/18 21:38 25 mg ONETIME ONE Administration Morphine Sulfate 4 mg 11/17/18 21:32 11/17/18 21:37 Morphine IVPUSH 11/17/18 21:33 4 mg ONETIME ONE Administration Nitroglycerin 0.4 mg 11/17/18 21:30 Nitrostat SL Q5M PRN Chest Pain Potassium Chloride 40 meq 11/17/18 20:06 11/17/18 20:34 Potassium Chloride PO 11/17/18 20:07 40 meq ONETIME ONE Administration - Radiology Interpretation Free Text/Narrative:: CXR-neg Departure - Departure Time of Disposition: 22:25 Disposition: DC/Tfer to Acute Hospital 02 Reason for Transfer *Q: Other Condition: Serious Clinical Impression: Cardiac ischemia, Hypokalemia Obesity Qualifiers: Obesity type: unspecified obesity type Obesity classification: adult class 2 ( BMI 35 - 39.9) Serious obesity comorbidity presence: with serious comorbidity Body mass index: BMI 37.0-37.9 Qualified Code(s): E66.01 - Morbid (severe) obesity due to excess calories Referrals: Modesto Quinteros PA [Primary Care Provider] - Forms: ED Department Discharge - My Orders Last 24 Hours: My Active Orders 11/17/18 18:43 Cardiac Monitoring [RC] .As Directed EKG Documentation Completion [RC] ASDIRECTED EKG 12 Lead [EK] Routine 11/17/18 20:15 NS + KCl 20mEq/L [Normal Saline with 20 mEq KCl] 1,000 ml IV ASDIRECTED 11/17/18 21:18 EKG Documentation Completion [RC] ASDIRECTED EKG 12 Lead [EK] Routine 11/17/18 22:00 TROPONIN I [CHEM] Stat 11/17/18 22:15 Heparin Sodium/D5W [Heparin 25,000 Units in D5W 500 ML] 25,000 units in 500 ml IV TITRATE - Assessment/Plan Last 24 Hours: My Active Orders 11/17/18 18:43 Cardiac Monitoring [RC] .As Directed EKG Documentation Completion [RC] ASDIRECTED EKG 12 Lead [EK] Routine 11/17/18 20:15 NS + KCl 20mEq/L [Normal Saline with 20 mEq KCl] 1,000 ml IV ASDIRECTED 11/17/18 21:18 EKG Documentation Completion [RC] ASDIRECTED EKG 12 Lead [EK] Routine 11/17/18 22:00 TROPONIN I [CHEM] Stat 11/17/18 22:15 Heparin Sodium/D5W [Heparin 25,000 Units in D5W 500 ML] 25,000 units in 500 ml IV TITRATE
[2018-11-17] MEDS: Aspirin 81 MG Tab.Chew PO ONE ×2 (19:06→19:11)
[2018-11-17] MEDS ORDERED: Potassium Chloride 10 MEQ Cap.ER PO ONE (20:06)
[2018-11-17] MEDS ORDERED: Acetaminophen 500 MG Tab PO ONE (20:10)
[2018-11-17] MEDS ORDERED: NS + KCl 20mEq/L 1,000 ML IV SCH (20:15)
[2018-11-17] MEDS ORDERED: Acetaminophen 500 MG Tab ONE (20:25)
[2018-11-17] MEDS ORDERED: Alum Hydrox/Mag Hydrox/Simeth 15 ML, Lidocaine 2% 15 ML PO ONE ×2 (20:30)
--- NOTE | 2018-11-17 20:53 | CRLCR ---
Clinical INDICATION: Mild hypoxia. Elevated white blood count. FINDINGS: The heart is magnified by the AP technique. The lungs are essentially clear. The pulmonary posterior and pleural surfaces appear normal. The bony thorax appears intact. IMPRESSION: No acute process identified. Dictated by Lionel Palumbo MD @ Nov 17 2018 8:51PM Signed by Dr. Lionel Palumbo @ Nov 17 2018 8:52PM
[2018-11-17] MEDS ORDERED: Nitroglycerin 0.4 MG Tab.SL SL PRN (21:30)
[2018-11-17] MEDS ORDERED: Morphine 4 MG/ML Syringe IVPUSH ONE (21:32)
[2018-11-17] MEDS ORDERED: Aspirin 81 MG Tab.Chew PO ONE (21:36)
[2018-11-17] MEDS ORDERED: Clopidogrel 75 MG Tab PO ONE (21:36)
[2018-11-17] MEDS ORDERED: Metoprolol Tartrate 25 MG Tab PO ONE (21:37)
[2018-11-17] MEDS ORDERED: Heparin Sodium 5,000 Units/ML Vial IVPUSH ONE (21:37)
[2018-11-17] MEDS ORDERED: Heparin Sodium/D5W 25,000 UNITS/500 ML BAG IV SCH (22:15)
[2018-11-17 22:20] VITALS: BP 146/74
[2018-11-17] MEDS ORDERED: LORazepam 2 MG/ML SDV IVPUSH ONE (22:31)
== END 2018-11-17 23:12 ==
LOC: JP.ED 18:38
DX: I25.9 Chronic ischemic heart disease, unspecified (principal); E87.6 Hypokalemia; I10 Essential (primary) hypertension; E78.00 Pure hypercholesterolemia, unspecified; F41.9 Anxiety disorder, unspecified; F32.9 Major depressive disorder, single episode, unspecified; Z88.6 Allergy status to analgesic agent; Z88.7 Allergy status to serum and vaccine; Z79.899 Other long term (current) drug therapy
CPT/HCPCS: 36415; 71046; 80048; 81001; 83735; 84484; 85027; 85379; 86140; 93005; 96361; 96365; 96375; 96376; 99285; A9270; J1644; J2060; J2270; J3480; J7120

== ENCOUNTER 2019-03-21 07:43 | Day surgery (SDC) | payer OTHER ==
[~2019-03-21 07:43] MED LIST: Bupivacaine 0.25% 10 ML SDV ONE; Bupivacaine 0.5% 50 ML MDV ONE
[2019-03-21] MEDS ORDERED: Lactated Ringers 1,000 ML IV SCH (08:15)
[2019-03-21] MEDS ORDERED: ceFAZolin 1 GM in Premix Bag 1 BAG IV ONE (08:15)
[2019-03-21] MEDS ORDERED: Nozin Nasal Sanitizer NASBOTH ONE (08:15)
[2019-03-21] MEDS ORDERED: Rocuronium 50 MG/5 ML Vial ONE (08:28)
[2019-03-21] MEDS ORDERED: Succinylcholine 200 MG/10 ML MDV ONE (08:28)
[2019-03-21] MEDS ORDERED: Propofol 200 MG/20 ML SDV ONE (08:28)
[2019-03-21] MEDS ORDERED: Glycopyrrolate 0.2 MG/ML 5 ML MDV ONE (08:28)
[2019-03-21] MEDS ORDERED: Dexamethasone 4 MG/ML SDV ONE (08:28)
[2019-03-21] MEDS ORDERED: Ondansetron 4 MG/2 ML SDV ONE (08:28)
[2019-03-21] MEDS ORDERED: Neostigmine Methylsulfate 1 MG/ML 5 ML Syringe ONE (08:28)
[2019-03-21] MEDS ORDERED: fentaNYL 250 MCG/5 ML SDV ONE (08:29)
[2019-03-21] MEDS ORDERED: fentaNYL 100 MCG/2 ML SDV ONE (08:55)
[2019-03-21] MEDS ORDERED: Ketorolac 60 MG/2 ML SDV ONE (09:43)
[2019-03-21 11:18] VITALS: BP 149/86
[2019-03-21] MEDS ORDERED: Acetaminophen/HYDROcodone 325-5 MG Tab PO ONE (11:18)
--- NOTE | 2019-03-28 22:27 | OR ---
DATE OF PROCEDURE: 03/21/2019 PREOPERATIVE DIAGNOSIS: Partial tear of the anterior cruciate ligament, left knee, with mucoid degeneration. POSTOPERATIVE DIAGNOSES: 1. Partial tear of anterior cruciate ligament, left knee, with mucoid degeneration. 2. Impingement of anterior cruciate ligament secondary to mucoid degeneration. 3. Mild chondromalacia, medial femoral condyle. PROCEDURE: Arthroscopy of left knee with debridement and debulking of anterior cruciate ligament. ANESTHESIA: General. INDICATIONS: Mikael is a 44-year-old gentleman who sustained a work-related injury to his left knee resulting in persistent knee pain. He has failed conservative treatment with physical therapy, intra-articular cortisone injection, medications, activity modifications, etc. Two separate MRIs reveal the mucoid degeneration of the ACL with ACL strain. He now presents for arthroscopic evaluation of the ACL and debridement and debulking. Risks, benefits, and potential complications of the procedure were discussed. PROCEDURE IN DETAIL: After adequate anesthesia was obtained, the patient placed supine on the operating table with a tourniquet about the left upper thigh. The left leg was prepped and draped in a sterile fashion. The leg was exsanguinated and tourniquet inflated to 300 mmHg pressure. Standard inferior, medial, and lateral portals were established. The scope was introduced initially into the suprapatellar pouch and the patellofemoral joint was inspected. This revealed no significant chondromalacia of the patella or trochlear groove. Some very mild softening was noted. The scope was swept down into the medial compartment, which revealed an intact meniscus. A probe was used to confirm this. Early degenerative change noted on the medial femoral condyle with grade 2 chondromalacia. Portion of the fat pad and ligamentum were debrided for visualization of the ACL. This revealed a very thickened ACL, completely filling the intercondylar notch and fraying of the anterior aspect of the ACL superiorly, consistent with impingement against the roof of the notch in extension. This was confirmed with visualization on range of motion of the knee. There was also impingement of an enlarged portion of the ACL with a flap-like extension into the edge of the lateral compartment. Lateral compartment was visualized with intact meniscus and no significant articular cartilage wear. Attention was returned to the notch, where a combination of the arthroscopic shaver and radiofrequency ablation wand were used to debride the torn fibers of the ACL and carefully debulk the tendon, removing the impinging flap from the lateral side and slightly debulking it laterally and anterior to prevent impingement against the persaud of the intercondylar notch. A probe was used to further evaluate the ligament, the remainder of which appeared to be stable. The knee was taken through range of motion. No other areas of impingement were noted. No other significant pathology was identified. The scope was then withdrawn. The knee was drained. Port sites were closed in a standard fashion. Steri-Strips were applied. The port sites and knee were then infiltrated with 0.5% Marcaine. A light compressive dressing was then applied. The patient tolerated the procedure well. There were no complications. Taken from the operating room in a stable condition. Mehrdad Zaldivar MD /[id number] MTDD
== END 2019-03-21 12:30 | disposition home or self-care (01) ==
LOC: JP.SDS 07:43
PROVIDERS: ATTEND Specialist
DX: S83.512A Sprain of anterior cruciate ligament of left knee, initial encounter (principal); M94.262 Chondromalacia, left knee; I10 Essential (primary) hypertension; I25.9 Chronic ischemic heart disease, unspecified; E78.2 Mixed hyperlipidemia; E66.01 Morbid (severe) obesity due to excess calories; J45.40 Moderate persistent asthma, uncomplicated; F41.9 Anxiety disorder, unspecified; F32.9 Major depressive disorder, single episode, unspecified; K44.9 Diaphragmatic hernia without obstruction or gangrene; K21.9 Gastro-esophageal reflux disease without esophagitis; G47.33 Obstructive sleep apnea (adult) (pediatric); G61.0 Guillain-Barre syndrome; X58.XXXA Exposure to other specified factors, initial encounter; Y99.0 Civilian activity done for income or pay; Z68.38 Body mass index [BMI] 38.0-38.9, adult; Z88.7 Allergy status to serum and vaccine; Z99.89 Dependence on other enabling machines and devices; Z87.891 Personal history of nicotine dependence; Z79.82 Long term (current) use of aspirin; Z79.51 Long term (current) use of inhaled steroids; Z79.899 Other long term (current) drug therapy
CPT/HCPCS: 29999; A9270; J0330; J0690; J1100; J1885; J2405; J2704; J2710; J3010; J3490; J7120

== ENCOUNTER 2021-03-02 06:22 | Day surgery (SDC) | payer BC ==
[~2021-03-02 06:22] MED LIST changes: -Bupivacaine 0.25% 10 ML SDV ONE; -Bupivacaine 0.5% 50 ML MDV ONE; +Lactated Ringers 1,000 ML IV SCH
[2021-03-02] MEDS ORDERED: Bupivacaine 0.5% 30 ML SDV ONE (06:41)
[2021-03-02] MEDS ORDERED: Povidone-Iodine 10% Soln 118.25 ML Bottle ONE (06:41)
[2021-03-02] MEDS: Nozin Nasal Sanitizer NASBOTH SCH ×2 (06:45→20:05)
[2021-03-02] MEDS ORDERED: ceFAZolin 2 GM in Premix Bag 1 BAG IV ONE (07:00)
[2021-03-02] MEDS ORDERED: Albuterol/Ipratropium 3.0-0.5 MG/3 ML Neb Soln NEB ONE (07:07)
[2021-03-02] MEDS ORDERED: fentaNYL 100 MCG/2 ML SDV ONE ×2 (07:23→09:24)
[2021-03-02] MEDS ORDERED: Propofol 200 MG/20 ML SDV ONE ×3 (07:23→08:48)
[2021-03-02] MEDS ORDERED: Midazolam 1 MG/ML 2 ML SDV ONE ×3 (07:24→09:21)
[2021-03-02] MEDS ORDERED: Ondansetron 4 MG/2 ML SDV IVPUSH PRN (09:33)
[2021-03-02] MEDS ORDERED: Acetaminophen 325 MG Tab PO PRN (09:33)
[2021-03-02] MEDS ORDERED: Morphine 2 MG/ML SYRINGE IVPUSH PRN (09:33)
[2021-03-02] MEDS ORDERED: Acetaminophen/HYDROcodone 325-5 MG Tab PO PRN (09:33)
[2021-03-02] MEDS ORDERED: Magnesium Hydroxide 400 MG/5 ML Susp 30 ML Cup PO PRN (09:33)
[2021-03-02] MEDS ORDERED: diphenhydrAMINE 25 MG Cap PO PRN (09:40)
[2021-03-02] MEDS ORDERED: Albuterol 8 GM Inhaler INH PRN (09:40)
[2021-03-02] MEDS ORDERED: Sodium Chloride 0.9% 1,000 ML IV SCH (09:45)
[2021-03-02] MEDS ORDERED: hydrOXYzine HCL 100 MG/2 ML SDV IM ONE (09:57)
[2021-03-02] MEDS ORDERED: Morphine 2 MG/ML SYRINGE IVPUSH ONE (09:57)
[2021-03-02] MEDS ORDERED: fentaNYL 100 MCG/2 ML SDV IVPUSH ONE (09:59)
[2021-03-02] MEDS: Acetaminophen/oxyCODONE 325-5 MG Tab PO PRN ×4 (11:02→23:50)
[2021-03-02] MEDS: Ketorolac 30 MG/ML SDV IVPUSH SCH ×2 (11:43→20:05)
--- NOTE | 2021-03-02 13:22 | CR ---
Knee 1V or 2V Lt portable CLINICAL HISTORY: Hemiarthroplasty FINDINGS: Patient is status post the placement of a medial hemiarthroplasty. Components appear well seated
[2021-03-02] MEDS: ceFAZolin 1 GM in Premix Bag 1 BAG IV SCH ×2 (13:50→23:00)
[2021-03-02] MEDS: Carvedilol 3.125 MG Tab PO SCH (17:36)
[2021-03-02] MEDS: Docusate Sodium 100 MG Cap PO SCH (20:05)
[2021-03-02] MEDS ORDERED: Nozin Nasal Sanitizer NASBOTH SCH (21:00)
[2021-03-03] MEDS: Ketorolac 30 MG/ML SDV IVPUSH SCH ×2 (03:32→11:24)
[2021-03-03] MEDS: Acetaminophen/oxyCODONE 325-5 MG Tab PO PRN ×4 (03:40→15:49)
[2021-03-03] MEDS: ceFAZolin 1 GM in Premix Bag 1 BAG IV SCH (07:07)
[2021-03-03] MEDS: Carvedilol 3.125 MG Tab PO SCH (07:29)
[2021-03-03] MEDS ORDERED: Pantoprazole 40 MG Tab.CR PO SCH (07:30)
[2021-03-03] MEDS: Nozin Nasal Sanitizer NASBOTH SCH (08:20)
[2021-03-03] MEDS: Docusate Sodium 100 MG Cap PO SCH (08:20)
--- NOTE | 2021-03-03 08:24 | PCM.DCSUM1 ---
Discharge Summary - Hospital Course Brief History: Sue 46-year-old male with history of severe left knee pain; symptoms refractory to conservative management. Patient elected to undergo left medial compartment arthroplasty. Underwent left medial compartment arthroplasty on 03/02/21. Tolerated surgery well with no complications. Diagnosis: Stroke: No Modified [place] Scale: No Symptoms at All Modified [place] Scale Score: 0 - Discharge Data Discharge Date: 03/03/21 Discharge Disposition: Home, Self-Care 01 Condition: Good - Referral to Home Health Date of Face to Face Encounter: 03/03/21 Reason for Homebound Status: motivated to go home, independent with ADLs, support from spouse at home. Primary Care Physician: Tracee Martinez PA-C - Patient Summary/Data Operative Procedure(s) Performed: Left knee medial compartment arthroplasty Consults: Consultations 03/02/21 09:33 Consult to Case Management/Carbon Accountant [CONS] Routine Comment: Physician Instructions: Service(s) to be Consulted: Case Management Reason for Consult: Plan for Discharge Special Instructions: home with outpatient pt at time of discharge OT Evaluation and Treatment [CONS] Routine Please Evaluate and Treat. OT Reason for Consult: ADL's Special Instructions: s/ left partial knee arthroplasty This query below is only for informational purposes and is not editable. PT Evaluation and Treatment [CONS] Routine Please Evaluate and Treat. PT Reason for Consult: Post op Ortho Surgery Special Instructions: s/p left partial knee arthroplasty This query below is only for informational purposes and is not editable. PT Evaluation and Treatment [CONS] Routine Please Evaluate and Treat. PT Reason for Consult: Post op Ortho Surgery Knee Pending Discharge: Yes, 1- 2 days Special Instructions: Schedule first outpatient PT appointment in 3-5 day post discharge. s/ left partial knee arthroplasty This query below is only for informational purposes and is not editable. Hospital Course: Patient is a sue 46-year-old male, status post left knee medial compartment arthroplasty, postop day #1. Patient tolerated surgery well with no complications. No acute events overnight. Patient remained hemodynamically stable following surgery. Does have hypertension per baseline; antihypertensive medications were resumed on postop day #1. Blood pressures mildly improved, but remain above normal limits. Denied headaches, nose bleeds. Has a follow up with headwaitress on 03/11. POD#1 HgB within normal limits at 12.6. Patient denied lightheadedness, dizziness, vision changes, subjective fevers or chills, nor dyspnea or chest pain. Pain has been well controlled postoperatively; patient's IV went bad in the grease renderer of postop day #1, so transition made to all oral medications. Did receive 2.5 grams of IV Ancef, rather than a full 3 grams due to IV failure. Patient was able to transfer from bed to chair yesterday, as well as ambulate a few steps in the hallway following surgery with four-wheel walker and standby assist. Did participate in PT this morning, ambulating 200 ft with FWW. Completed stairs safely with afternoon physical therapy. Able to complete ADLs with minimal assistance. Tolerating regular diet well without nausea or emesis. Patient did receive 30 mg Lovenox subcutaneous for chemical DVT/VTE prophylaxis while in the hospital. Bilateral SCDs were worn on lower extremities for mechanical DVT/VTE prophylaxis. Elam catheter discontinued POD#1. Dressing changed by orthopedic provider on POD#1. LLE Exam: Left knee incision well approximated. Steristrips intact above incision with minimal dried drainage. Moderate swelling of left knee. + Pedal edema. Calf soft and supple. Negative Nai's sign. Tibialis posterior, 2+. ROM: 10-75. - Patient Instructions Diet: Usual Diet as Tolerated Activity: Apply Ice, Full Weight Bearing Driving: Do Not Drive Showering/Bathing: Shower in AM Wound/Incision Care: Keep Operative Site/Wound Site Clean and Dry, Change Dressing Daily Notify Provider of: Fever, Increased Pain, Swelling and Redness, Drainage Other/Special Instructions: -Pain control: rx for 5mg-325 mg Percocet, 1-2 tabs q6 hrs, #40 sent to pharmacy. This is a 1 week supply, will not be able to do any early refills. May take NSAIDs as needed for breakthrough pain. May continue with stool softener while on opioid medication. -Continue with Nozin [place] BID for the following week. -DVT/VTE prophylaxis: Take 1 aspirin, 81 mg or 325 mg, twice a day for prevention of blood clots for the following month. If you develop increased calf pain, temperature change or discoloration in your lower extremity, or shortness of breath, please seek medical attention. -Watch your incision for increased redness, purulent drainage, or surrounding warmth. Contact clinic if any of the above symptoms occur. -You may shower; leave steristrips on left knee and let water run above. These will fall off in 5-7 days. Do not submerge knee in water- no bath, pools, flores water. -Monitor blood pressure at home; if remains elevated >140/80, should follow up with headwaitress/PCP. -Follow up in 2 weeks for your scheduled post-operative apt. Contact clinic with any concerns or questions that arise prior to your scheduled apt. - Discharge Plan *PRESCRIPTION DRUG MONITORING PROGRAM REVIEWED*: Yes *COPY OF PRESCRIPTION DRUG MONITORING REPORT IN PATIENT ALBARO: Not Applicable Prescriptions/Med Rec: Acetaminophen/oxyCODONE [Percocet 325-5 MG] 1 - 2 each PO Q6HR PRN #40 tab PRN Reason: Pain Home Medications: Home Meds Acetaminophen [Tylenol Extra Strength] 500 - 1,000 mg PO Q4H PRN 12/16/16 [History] Omeprazole 20 mg PO DAILY 12/16/16 [History] Albuterol [Ventolin HFA] 1 - 2 puff INH Q4HR PRN 12/17/16 [History] carvediloL [Carvedilol] 3.125 mg PO BIDMEALS 03/21/19 [History] Multivitamin with Minerals [Multiple Vitamin] 1 tab PO DAILY 06/07/19 [History] diphenhydrAMINE HCL [Benadryl] 25 mg PO BEDTIME PRN 06/07/19 [History] Losartan Potassium [Cozaar] 50 mg PO DAILY 12/24/20 [History] Venlafaxine HCl [Venlafaxine ER] 150 mg PO DAILY 12/24/20 [History] amLODIPine Besylate [Amlodipine Besylate] 5 mg PO DAILY 12/24/20 [History] hydroCHLOROthiazide [Hydrochlorothiazide] 25 mg PO DAILY 12/24/20 [History] Sildenafil Citrate 25 mg PO ASDIRECTED PRN 02/24/21 [History] Acetaminophen/oxyCODONE [Percocet 325-5 MG] 1 - 2 each PO Q6HR PRN #40 tab 03/03/21 [Rx] Oxygen Therapy Mode: Room Air Patient Handouts: Partial Knee Replacement, Care After Referrals: Rosie Pulliam, PT [Physical Therapist] - 03/05/21 1:00 pm (Please arrive 15-30 minutes early to register for appointment and complete paperwork. [facility] at the ER desk.) Mehrdad Zaldivar MD [Physician] - 03/17/21 11:45 am (Please arrive 15 minutes early to register for your appointment.) - Discharge Summary/Plan Comment DC Time >30 min.: No Discharge Summary/Plan Comment: * Anticipate discharge to home with outpatient PT * Pain control: 5mg-325mg Percocet, 1-2 tabs PO q6 hrs #40 sent to patient's pharmacy. Educated patient on use of ibuprofen/NSAIDs for breakthrough pain. Educated patient this is a 1 week supply, will not be able to refill early so use sparingly. Encouraged to continue stool softener while on opioid medications. * Patient to take 1 aspirin BID for DVT/VTE prophylaxis for the following month. * Patient to continue with Nozin spray BID for the following week * Follow up with orthopedics in 2 weeks; encouraged to contact clinic if any concerns or questions arise prior to scheduled apt. - General Info Date of Service: 03/03/21 Admission Dx/Problem (Free Text: left knee partial arthroplasty of the medial compartment. Functional Status: Reports: Pain Controlled, Tolerating Diet, Ambulating (with FWW), Urinating - Review of Systems General: Reports: Appetite (endorsed good appetite ). Denies: Fever, Weakness, Fatigue, Malaise, Chills, Night Sweats HEENT: Denies: Visual Changes Pulmonary: Denies: Shortness of Breath Cardiovascular: Denies: Chest Pain, Palpitations, Lightheadedness Musculoskeletal: Reports: Leg Pain (left ), Joint Pain (left knee ), Joint Swelling (left knee ) Skin: Reports: Bruising (left knee ) Neurological: Reports: No Symptoms Psychiatric: Reports: No Symptoms - Patient Data Vitals - Most Recent: Last Vital Signs Temp 98.4 F 03/03/21 07:26 Pulse 81 03/03/21 07:29 Resp 12 03/03/21 07:26 BP 144/72 H 03/03/21 07:29 Pulse Ox 99 03/03/21 07:26 Weight - Most Recent: 281 lb 12.8 oz I&O - Last 24 hours: Intake & Output 03/02/21 03/03/21 03/03/21 22:59 06:59 14:59 Intake Total 800 1800 Output Total 900 1525 Balance -100 275 Lab Results - Last 24 hrs: Laboratory Results - last 24 hr 03/03/21 Range/Units 04:10 WBC 9.9 (4.5-11.0) K/uL RBC 4.22 L (4.30-5.90) M/uL Hgb 12.6 (12.0-15.0) g/dL Hct 36.7 L (40.0-54.0) % MCV 87 (80-98) fL MCH 30 (27-31) pg MCHC 34 (32-36) % Plt Count 303 (150-400) K/uL Med Orders - Current: Current Medications Acetaminophen (Acetaminophen 325 Mg Tab) 650 mg PO Q4H PRN PRN Reason: Pain/Fever Hydrocodone Bitart/Acetaminophen (Acetaminophen/Hydrocodone 325-5 Mg Tab) 1 tab PO Q4H PRN PRN Reason: Pain (mild 1-3) Albuterol (Albuterol 8 Gm Inhaler) 0 gm INH Q4H PRN PRN Reason: Shortness of Breath Amlodipine Besylate (Amlodipine 5 Mg Tab) 5 mg PO DAILY [facility] Bandage/Support Products (Nozin Nasal Bath Solution Maker) 1 applic NASBOTH BID [facility] Stop: 03/08/21 21:01 Last Admin: 03/02/21 20:05 Dose: 1 applic Documented by: Carvedilol (Carvedilol 3.125 Mg Tab) 3.125 mg PO BIDMEALS [facility] Last Admin: 03/03/21 07:29 Dose: 3.125 mg Documented by: Diphenhydramine HCl (Diphenhydramine 25 Mg Cap) 25 mg PO BEDTIME PRN PRN Reason: Sleep Last Admin: 03/03/21 01:33 Dose: 25 mg Documented by: Docusate Sodium (Docusate Sodium 100 Mg Cap) 100 mg PO BID [facility] Last Admin: 03/02/21 20:05 Dose: 100 mg Documented by: Enoxaparin Sodium (Enoxaparin 30 Mg/0.3 Ml Syringe) 30 mg SUBCUT DAILY [facility] Hydrochlorothiazide (Hydrochlorothiazide 25 Mg Tab) 25 mg PO DAILY [facility] Sodium Chloride (Normal Saline) 1,000 mls @ 125 mls/hr IV ASDIRECTED [facility] Ketorolac Tromethamine (Ketorolac 30 Mg/Ml Sdv) 30 mg IVPUSH Q8H [facility] Stop: 03/04/21 04:01 Last Admin: 03/03/21 03:32 Dose: 30 mg Documented by: Losartan Potassium (Losartan 50 Mg Tab) 50 mg PO DAILY [facility] Magnesium Hydroxide (Magnesium Hydroxide 400 Mg/5 Ml Susp 30 Ml Cup) 30 ml PO BID PRN PRN Reason: Constipation Ondansetron HCl (Ondansetron 4 Mg/2 Ml Sdv) 4 mg IVPUSH Q4H PRN PRN Reason: Nausea/Vomiting Oxycodone/Acetaminophen (Acetaminophen/Oxycodone 325-5 Mg Tab) 1 - 2 tab PO Q4H PRN PRN Reason: Pain Last Admin: 03/03/21 07:31 Dose: 2 tab Documented by: Pantoprazole Sodium (Pantoprazole 40 Mg Tab.Cr) 40 mg PO ACBREAKFAST [facility] Last Admin: 03/03/21 07:25 Dose: 40 mg Documented by: Venlafaxine HCl (Venlafaxine 75 Mg Cap.Er) 150 mg PO DAILY [facility] Discontinued Medications Albuterol/Ipratropium (Albuterol/Ipratropium 3.0-0.5 Mg/3 Ml Neb Soln) 3 ml NEB ONETIME ONE Stop: 03/02/21 07:08 Last Admin: 03/02/21 07:17 Dose: 3 ml Documented by: Bupivacaine HCl (Bupivacaine 0.5% 30 Ml Sdv) Confirm Administered Dose 30 ml .ROUTE .STK-MED ONE Stop: 03/02/21 06:42 Fentanyl (Fentanyl 100 Mcg/2 Ml Sdv) Confirm Administered Dose 100 mcg .ROUTE .STK-MED ONE Stop: 03/02/21 07:24 Fentanyl (Fentanyl 100 Mcg/2 Ml Sdv) Confirm Administered Dose 100 mcg .ROUTE .STK-MED ONE Stop: 03/02/21 09:25 Fentanyl (Fentanyl 100 Mcg/2 Ml Sdv) 50 mcg IVPUSH ONETIME ONE Stop: 03/02/21 10:00 Last Admin: 03/02/21 10:04 Dose: 50 mcg Documented by: Hydroxyzine HCl (Hydroxyzine Hcl 100 Mg/2 Ml Sdv) 100 mg IM ONETIME ONE Stop: 03/02/21 09:58 Last Admin: 03/02/21 10:05 Dose: 100 mg Documented by: Cefazolin Sodium/Dextrose 2 gm (/ Premix) 50 mls @ 100 mls/hr IV ONETIME ONE Stop: 03/02/21 07:29 Last Admin: 03/02/21 07:44 Dose: 100 mls/hr Documented by: Lactated Ringer's (Ringers, Lactated) 1,000 mls @ 75 mls/hr IV ASDIRECTED [facility] Last Admin: 03/02/21 06:50 Dose: 75 mls/hr Documented by: Cefazolin Sodium/Dextrose 1 gm (/ Premix) 50 mls @ 100 mls/hr IV Q8H [facility] Stop: 03/03/21 06:29 Last Admin: 03/03/21 07:07 Dose: 100 mls/hr Documented by: Midazolam HCl (Midazolam 1 Mg/Ml 2 Ml Sdv) Confirm Administered Dose 2 mg .ROUTE .STK-MED ONE Stop: 03/02/21 07:25 Midazolam HCl (Midazolam 1 Mg/Ml 2 Ml Sdv) Confirm Administered Dose 2 mg .ROUTE .STK-MED ONE Stop: 03/02/21 08:01 Midazolam HCl (Midazolam 1 Mg/Ml 2 Ml Sdv) Confirm Administered Dose 2 mg .ROUTE .STK-MED ONE Stop: 03/02/21 09:22 Povidone Iodine (Povidone-Iodine 10% Soln 118.25 Ml Bottle) Confirm Administered Dose 1 ml .ROUTE .STK-MED ONE Stop: 03/02/21 06:42 Last Admin: 03/02/21 08:21 Dose: 15 ml Documented by: Propofol (Propofol 200 Mg/20 Ml Sdv) Confirm Administered Dose 200 mg .ROUTE .STK-MED ONE Stop: 03/02/21 07:24 Propofol (Propofol 200 Mg/20 Ml Sdv) Confirm Administered Dose 200 mg .ROUTE .STK-MED ONE Stop: 03/02/21 08:15 Propofol (Propofol 200 Mg/20 Ml Sdv) Confirm Administered Dose 200 mg .ROUTE .STK-MED ONE Stop: 03/02/21 08:49 - Exam Quality Assessment: Reports: DVT Prophylaxis General: Reports: Alert, Oriented, Cooperative, No Acute Distress Extremities: Normal Capillary Refill, Joint Swelling (left knee ), Leg Pain (left ), Limited Range of Motion (due to postoperative swelling and pain ). No: Nai's Sign Skin: Reports: Dry, Intact Wound/Incisions: Reports: Healing Well, Dressing Dry and Intact, No Drainage Neurological: Reports: No New Focal Deficit Psy/Mental Status: Reports: Alert, Normal Affect, Normal Mood
[2021-03-03] MEDS ORDERED: Losartan 50 MG Tab PO SCH (09:00)
[2021-03-03] MEDS ORDERED: amLODIPine 5 MG Tab PO SCH (09:00)
[2021-03-03] MEDS ORDERED: Enoxaparin 30 MG/0.3 ML Syringe SUBCUT SCH (09:00)
[2021-03-03] MEDS ORDERED: Venlafaxine 75 MG Cap.ER PO SCH (09:00)
[2021-03-03] MEDS ORDERED: Hydrochlorothiazide 25 MG Tab PO SCH (09:00)
[2021-03-03 15:52] VITALS: BP 158/93; PULSE 78
--- NOTE | 2021-03-04 15:32 | OR ---
DATE OF PROCEDURE: 03/02/2021 SURGEON: Mehrdad Zaldivar MD PREOPERATIVE DIAGNOSIS: Osteoarthritis, left knee, medial compartment. POSTOPERATIVE DIAGNOSIS: Osteoarthritis, left knee, medial compartment. PROCEDURE PERFORMED: Left medial unicompartmental arthroplasty utilizing [employer] ZUK component with a size D femur, 3 tibia, and 8 mm poly. VOLTAGE INSPECTOR: MADELEINE Prater ANESTHESIA: Spinal with sedation. INDICATIONS: Mikael is a 46-year-old gentleman with a history of persistent and progressive left knee pain. He has had previous knee arthroscopy documenting medial compartment chondromalacia, particularly the femoral condyle. Recent MRI documents persistent changes with subchondral edema consistent with progressive chondromalacia and DJD. He now presents for left medial unicompartmental arthroplasty. Risks, benefits, and potential complications were discussed. DESCRIPTION OF PROCEDURE: After adequate anesthesia was obtained, the patient was placed supine with a tourniquet about the left upper thigh. The left leg was prepped and draped in a sterile fashion. The leg was exsanguinated and tourniquet inflated to 300 mmHg pressure. A longitudinal incision was made just medial of midline from the tibial tubercle to the superior pole of the patella. Medial parapatellar arthrotomy was performed and taken up to the insertion of the VMO. Anterior horn of the medial meniscus was excised. The knee was flexed and oscillating saw used to remove the anterior lip of the tibia. The leg was extended, and the extramedullary alignment jig was placed. This was aligned and secured. The distal femur was resected. This portion of the guide was removed. The knee was then flexed, and the proximal tibia was resected with a combination of oscillating and reciprocating saws. The remaining portion of the medial meniscus was excised. The femur was sized to a D component. The D cutting jig was secured to the femur. Peg holes and remaining cuts were made. The guide was removed. Cut portions of the femur were removed. The trial femoral component was placed with excellent fit. The tibia was then sized to a #3 component. The trial was tapped into position, secured with a pin, and peg holes were drilled. Both flexion and extension gaps were found to be tight and would not allow the 8 mm trial to be placed. The tibia was re-cut. The trial was again placed, and an 8 mm polyethylene trial was placed. This allowed a 2 mm gap in both flexion and extension. The trials were removed, and the knee was thoroughly irrigated. Bone surfaces were dried. The components were cemented in place. Excess cement was removed, and the knee was held in full extension with the 8 mm trial and the 2 mm gap guide. Once the cement had cured, the knee was taken through range of motion and again found to be stable in flexion and extension with an 8 mm poly. The trial was removed. The knee was irrigated and the final polyethylene snapped into position. The knee was then irrigated with a dilute Betadine solution followed by pulse lavage. The arthrotomy was closed with #2 Ethibond in a running fashion. Skin was closed with 2-0 Vicryl and a running 3-0 Monocryl. Steri-Strips were applied. Sterile dressing was then placed. The patient tolerated the procedure well. There were no complications. He was taken from the operating room in stable condition. Mehrdad Zaldivar MD /[id number]
== END 2021-03-03 16:58 | disposition home or self-care (01) ==
LOC: JP.SDS 06:22 → JP.MS 09:33 → JP.SDS 03-03 16:58
PROVIDERS: ATTEND Specialist
DX: M17.12 Unilateral primary osteoarthritis, left knee (principal); I71.2 Thoracic aortic aneurysm, without rupture; J45.909 Unspecified asthma, uncomplicated; E66.01 Morbid (severe) obesity due to excess calories; G47.33 Obstructive sleep apnea (adult) (pediatric); I10 Essential (primary) hypertension; E78.2 Mixed hyperlipidemia; Z68.39 Body mass index [BMI] 39.0-39.9, adult; I47.2 Ventricular tachycardia; Z98.890 Other specified postprocedural states; Z79.899 Other long term (current) drug therapy; Z88.7 Allergy status to serum and vaccine; Z87.891 Personal history of nicotine dependence
CPT/HCPCS: 27446; 36415; 73560; 85027; 94640; 97110; 97116; 97161; 97165; A9270; C1713; C1776; J0690; J1650; J1885; J2250; J2704; J3010; J3410; J7120; J3490; J7620-GY

== ENCOUNTER 2021-04-29 17:32 | Emergency (ER) | payer BC ==
[2021-04-29 18:00] VITALS: BP 131/73; PULSE 79
--- NOTE | 2021-04-29 18:58 | EDM.PDOC ---
ED HPI GENERAL MEDICAL PROBLEM - General Chief Complaint: Respiratory Problem Stated Complaint: SOB Time Seen by Provider: 04/29/21 18:21 Source of Information: Reports: Patient History Limitations: Reports: No Limitations - History of Present Illness INITIAL COMMENTS - FREE TEXT/NARRATIVE: Mikael is a 46-year-old male presenting to the ED for evaluation of increasing shortness of breath and nonproductive cough for the last 3 weeks. Patient has a past medical history significant for asthma and states that his inhaler nor his nebulizer machine are doing much help. He does not smoke. He denies any fever or chills. He has significant rhinorrhea and facial pressure. He does complain of a sore throat and a headache from coughing. He does have a history of being vaccinated for COVID-19 receiving the [place] and Stag vaccine in October. He complains of chest tightness and burning in the upper chest. - Related Data Allergies Allergy/AdvReac Type Severity Reaction Status Date / Time codeine Allergy Rash Verified 04/29/21 18:35 Influenza Virus Vaccines Allergy Other Verified 04/29/21 18:35 morphine Allergy Rash Verified 04/29/21 18:35 Home Meds: Home Meds Acetaminophen [Tylenol Extra Strength] 500 - 1,000 mg PO Q4H PRN 12/16/16 [History] Omeprazole 20 mg PO DAILY 12/16/16 [History] Albuterol [Ventolin HFA] 1 - 2 puff INH Q4HR PRN 12/17/16 [History] carvediloL [Carvedilol] 3.125 mg PO BIDMEALS 03/21/19 [History] Multivitamin with Minerals [Multiple Vitamin] 1 tab PO DAILY 06/07/19 [History] diphenhydrAMINE HCL [Benadryl] 25 mg PO BEDTIME PRN 06/07/19 [History] Losartan Potassium [Cozaar] 50 mg PO DAILY 12/24/20 [History] Venlafaxine HCl [Venlafaxine ER] 150 mg PO DAILY 12/24/20 [History] amLODIPine Besylate [Amlodipine Besylate] 5 mg PO DAILY 12/24/20 [History] hydroCHLOROthiazide [Hydrochlorothiazide] 25 mg PO DAILY 12/24/20 [History] Sildenafil Citrate 25 mg PO ASDIRECTED PRN 02/24/21 [History] Ibuprofen 1 - 2 tab PO Q6HR PRN 04/14/21 [History] Albuterol/Ipratropium [DuoNeb 3.0-0.5 MG/3 ML] 3 ml .XX Q4HR PRN #30 units 04/29/21 [Rx] Azithromycin 250 mg PO DAILY #6 tablet 04/29/21 [Rx] predniSONE [Prednisone] 40 mg PO DAILY #10 tablet 04/29/21 [Rx] Past Medical History HEENT History: Reports: None Cardiovascular History: Reports: Arrhythmia, High Cholesterol, Hypertension, Other (See Below) Other Cardiovascular History: "enlarged aorta" Respiratory History: Reports: Asthma, Sleep Apnea, Other (See Below) Other Respiratory History: hx of tracheostomy 2004. MRSA in sputum during trach Gastrointestinal History: Reports: None Genitourinary History: Reports: None Musculoskeletal History: Reports: Fracture, Other (See Below) Other Musculoskeletal History: L knee pain. left ankle FX Neurological History: Reports: Other (See Below) Other Neuro History: guillan barre. Psychiatric History: Reports: Addiction, Anxiety, Depression Endocrine/Metabolic History: Reports: Obesity/BMI 30+ Hematologic History: Reports: None Immunologic History: Reports: None Oncologic (Cancer) History: Reports: None Dermatologic History: Reports: None - Infectious Disease History Infectious Disease History: Reports: Chicken Pox, MRSA - Past Surgical History Head Surgeries/Procedures: Reports: None Cardiovascular Surgical History: Reports: None Respiratory Surgical History: Reports: None GI Surgical History: Reports: Colonoscopy, EGD Neurological Surgical History: Reports: None Musculoskeletal Surgical History: Reports: None, Arthroscopic Knee Other Musculoskeletal Surgeries/Procedures:: lt knee scope 03/21/19. s/p L partial knee 03/02/21 Social & Family History - Family History Family Medical History: No Pertinent Family History Cardiac: Reports: Hypertension, ID Respiratory: Reports: Asthma, COPD Oncologic: Reports: Lung, Pancreatic - Tobacco Use Tobacco Use Status *Q: Former Tobacco User Used Tobacco, but Quit: Yes Month/Year Tobacco Last Used: 2013 - Caffeine Use Caffeine Use: Reports: Coffee - Recreational Drug Use Recreational Drug Use: No ED ROS GENERAL - Review of Systems Review Of Systems: See Below Constitutional: Reports: Malaise, Weakness HEENT: Reports: Rhinitis, Sinus Problem, Throat Pain Respiratory: Reports: Shortness of Breath, Wheezing, Cough Cardiovascular: Reports: No Symptoms Endocrine: Reports: No Symptoms GI/Abdominal: Reports: No Symptoms : Reports: No Symptoms Musculoskeletal: Reports: No Symptoms Skin: Reports: No Symptoms Neurological: Reports: No Symptoms Psychiatric: Reports: No Symptoms Hematologic/Lymphatic: Reports: No Symptoms Immunologic: Reports: No Symptoms ED EXAM, GENERAL - Physical Exam Exam: See Below Exam Limited By: No Limitations General Appearance: Alert, Anxious, Mild Distress Eye Exam: Bilateral Eye: EOMI, PERRL Ears: Normal External Exam, Normal TMs Nose: Nasal Swelling, Nasal Drainage, Clear Rhinorrhea. No: Nasal Tenderness Throat/Mouth: Normal Inspection, Normal Lips, Normal Oropharynx, Normal Voice, No Airway Compromise Head: Atraumatic Neck: Normal Inspection, Supple, Full Range of Motion. No: Lymphadenopathy (R), Lymphadenopathy (L) Respiratory/Chest: No Respiratory Distress, Wheezing (During expiratory). No: Decreased Breath Sounds Cardiovascular: Normal Peripheral Pulses, Regular Rate, Rhythm, No Murmur Peripheral Pulses: 2+: Radial (L), Radial (R) GI/Abdominal: Normal Bowel Sounds, Soft, Non-Tender Back Exam: Normal Inspection, Full Range of Motion Extremities: Normal Inspection, Normal Range of Motion Neurological: Alert, Oriented, Normal Cognition, No Motor/Sensory Deficits Psychiatric: Normal Affect Skin Exam: Warm, Dry Course - Vital Signs Last Recorded V/S: Last Vital Signs Temp 36.3 C 04/29/21 18:40 Pulse 79 04/29/21 18:40 Resp 16 04/29/21 18:40 BP 131/73 04/29/21 18:40 Pulse Ox 92 L 04/29/21 18:40 - Orders/Labs/Meds Orders: Active Orders 24 hr Category Date Time Status RT Aerosol Therapy [RC] ASDIRECTED Care 04/29/21 20:06 Ordered Chest 1V Frontal [CR] Stat Exams 04/29/21 18:49 Taken Labs: Laboratory Tests 04/29/21 04/29/21 04/29/21 Range/Units 18:55 18:55 19:35 WBC 10.0 (4.5-11.0) K/uL RBC 4.48 (4.30-5.90) M/uL Hgb 13.4 (12.0-15.0) g/dL Hct 39.3 L (40.0-54.0) % MCV 88 (80-98) fL MCH 30 (27-31) pg MCHC 34 (32-36) % Plt Count 365 (150-400) K/uL Neut % (Auto) 65.4 (36-66) % Lymph % (Auto) 19.6 L (24-44) % [place] % (Auto) 8.7 H (2-6) % Eos % (Auto) 5.6 H (2-4) % Baso % (Auto) 0.7 (0-1) % Sodium 143 (140-148) mmol/L Potassium 3.3 L (3.6-5.2) mmol/L Chloride 106 (100-108) mmol/L Carbon Dioxide 28 (21-32) mmol/L Anion Gap 12.3 (5.0-14.0) mmol/L BUN 26 H (7-18) mg/dL Creatinine 1.6 H (0.8-1.3) mg/dL Est Cr Clr Drug Dosing 63.81 mL/min Estimated GFR (MDRD) 46 L (>60) Glucose 114 H (74-106) mg/dL Calcium 8.8 (8.5-10.1) mg/dL Total Bilirubin 0.3 (0.2-1.0) mg/dL AST 17 (15-37) U/L ALT 33 (12-78) U/L Alkaline Phosphatase 87 (46-116) U/L C-Reactive Protein 0.64 H (0.0-0.3) mg/dL Total Protein 7.5 (6.4-8.2) g/dL Albumin 3.8 (3.4-5.0) g/dL Globulin 3.7 H (2.3-3.5) g/dL Albumin/Globulin Ratio 1.0 L (1.2-2.2) SARS-CoV-2 RNA (EM) Negative (NEGATIVE) Meds: Medications Discontinued Medications Generic Name Dose Route Start Last Admin Trade Name Freq PRN Reason Stop Dose Admin Albuterol/Ipratropium 3 ml 04/29/21 20:04/29/21 20:16 Albuterol/Ipratropium 3.0-0.5 Mg/3 Ml Neb Soln NEB 04/29/21 20:06 3 ml ONETIME ONE Administration Methylprednisolone Sodium Succinate 125 mg 04/29/21 20:05 04/29/21 20:14 Methylprednisolone Sodium Succinate 125 Mg/2 Ml Sdv IM 04/29/21 20:06 125 mg ONETIME ONE Administration - Re-Assessments/Exams Free Text/Narrative Re-Assessment/Exam: 04/29/21 20:09 reviewed the patient's one-view portable chest x-ray showing some mild haziness in the right base. His exam is significant for inspiratory wheezes and diminished breath sounds in the bases. His labs show a leukocyte count of 10, hemoglobin of 13.4, hematocrit of 39.3, and platelet count of 365,000. His comprehensive metabolic panel shows a sodium 143, potassium 3.3, chloride 106, bicarbonate of 28, BUN of 26 with a creatinine 1.6 and a glucose of 114. C-reactive protein is mildly elevated at 0.64. His exam is consistent with an acute bronchitis, although it does not appear to be aniya bacterial bronchitis. I do think that there would be some benefit to azithromycin for its anti-inflammatory bronchial properties so we will put him on a Z-Robert. Patient was given Solu-Medrol 125 mg IM and we will do a 5-day prednisone burst as well. 04/29/21 20:16 Covid is negative. Departure - Departure Time of Disposition: 20:23 Disposition: Home, Self-Care 01 Clinical Impression: Elevated serum creatinine Acute bronchitis Qualifiers: Bronchitis organism: unspecified organism Qualified Code(s): J20.9 - Acute bronchitis, unspecified Exacerbation of asthma Qualifiers: Asthma severity: mild Asthma persistence: intermittent Qualified Code(s): J45.21 - Mild intermittent asthma with (acute) exacerbation - Discharge Information Prescriptions: Azithromycin 250 mg PO DAILY #6 tablet Albuterol/Ipratropium [DuoNeb 3.0-0.5 MG/3 ML] 3 ml .XX Q4HR PRN #30 units PRN Reason: Dyspnea predniSONE [Prednisone] 40 mg PO DAILY #10 tablet Instructions: Asthma, Adult, Acute Bronchitis, Adult, [id number] Referrals: Tracee Martinez PA-C [Primary Care Provider] - Forms: ED Department Discharge Care Plan Goals: My plan is to put you on a prednisone 5-day burst at 40 mg a day as well as start you on azithromycin Z-Robert, take as directed with 2 tablets today and 1 tablet a day for the next 4 days. This should help reduce your symptoms. Sepsis Event Note (ED) - Focused Exam Vital Signs: Vital Signs Temp Pulse Resp BP Pulse Ox 04/29/21 18:40 36.3 C 79 16 131/73 92 L 04/29/21 17:59 36.3 C 79 16 131/73 92 L - Problem List & Annotations (1) Acute bronchitis SNOMED Code(s): 73333710 Code(s): J20.9 - ACUTE BRONCHITIS, UNSPECIFIED Status: Acute Priority: Medium Current Visit: Yes Qualifiers: Bronchitis organism: unspecified organism Qualified Code(s): J20.9 - Acute bronchitis, unspecified (2) Elevated serum creatinine SNOMED Code(s): 247067625 Code(s): R79.89 - OTHER SPECIFIED ABNORMAL FINDINGS OF BLOOD CHEMISTRY Sta tus: Chronic Priority: Medium Current Visit: Yes (3) Exacerbation of asthma SNOMED Code(s): 624622248 Code(s): J45.901 - UNSPECIFIED ASTHMA WITH (ACUTE) EXACERBATION Status: Chronic Priority: Medium Current Visit: Yes Qualifiers: Asthma severity: mild Asthma persistence: intermittent Qualified Code(s): J45.21 - Mild intermittent asthma with (acute) exacerbation - Problem List Review Problem List Initiated/Reviewed/Updated: Yes - My Orders Last 24 Hours: My Active Orders 04/29/21 18:49 Chest 1V Frontal [CR] Stat 04/29/21 20:06 RT Aerosol Therapy [RC] ASDIRECTED - Assessment/Plan Last 24 Hours: My Active Orders 04/29/21 18:49 Chest 1V Frontal [CR] Stat 04/29/21 20:06 RT Aerosol Therapy [RC] ASDIRECTED
[2021-04-29] MEDS ORDERED: Albuterol/Ipratropium 3.0-0.5 MG/3 ML Neb Soln NEB ONE (20:05)
[2021-04-29] MEDS ORDERED: methylPREDNISolone Sodium Succinate 125 MG/2 ML SDV IM ONE (20:05)
--- NOTE | 2021-04-30 09:24 | CR ---
CHEST: Portable 04/29/2021 at 7:16 PM CLINICAL HISTORY:Cough and SOB COMPARISON:2019 FINDINGS: The heart size, pulmonary vascularity and hilar structures are normal. No infiltrate effusion or pneumothorax is seen. There is a granuloma in the right midlung field IMPRESSION: No acute cardiopulmonary process.
== END 2021-04-29 20:34 | disposition home or self-care (01) ==
LOC: JP.ED 17:32
DX: J20.9 Acute bronchitis, unspecified (principal); J45.21 Mild intermittent asthma with (acute) exacerbation; R79.89 Other specified abnormal findings of blood chemistry; I10 Essential (primary) hypertension; J45.909 Unspecified asthma, uncomplicated; E66.9 Obesity, unspecified; Z68.36 Body mass index [BMI] 36.0-36.9, adult; Z20.822 Contact with and (suspected) exposure to COVID-19; Z88.5 Allergy status to narcotic agent; Z88.7 Allergy status to serum and vaccine; Z79.899 Other long term (current) drug therapy; Z87.891 Personal history of nicotine dependence
CPT/HCPCS: 36415; 71045; 80053; 85025; 86140; 87635; 94640; 96372; 99285; J2930; J7620-GY; U0002

== ENCOUNTER 2022-01-03 05:09 | Emergency (ER) | payer SELFPAY ==
[2022-01-03] MEDS ORDERED: Aluminum Hydroxide/Magnesium Hydroxide/Simethicone Susp 30 ML Cup PO ONE (05:40)
[2022-01-03] MEDS ORDERED: Acetaminophen 500 MG Tab PO ONE (05:56)
[2022-01-03 06:22] LABS: TROPONIN I HIGH SENSITIVITY 11.4 pg/mL (<=60.3)
[2022-01-03] MEDS ORDERED: Ketorolac 30 MG/ML SDV IVPUSH ONE (06:38)
[2022-01-03] MEDS ORDERED: Potassium Chloride 20 MEQ in Premix Bag 1 BAG IV ONE (06:38)
[2022-01-03] MEDS ORDERED: Sodium Chloride 0.9% 1,000 ML IV ONE (06:38)
[2022-01-03] MEDS ORDERED: Lidocaine 1% 5 ML VIAL ONE (06:45)
[2022-01-03] MEDS ORDERED: LORazepam 2 MG/ML SDV IVPUSH ONE (07:07)
[2022-01-03] MEDS ORDERED: Lidocaine 1% 5 ML VIAL INJECT ONE (08:10)
[2022-01-03] MEDS ORDERED: LORazepam 1 MG Tab PO ONE (09:54)
[2022-01-03] MEDS ORDERED: Sodium Chloride 0.9% 10 ML Syringe FLUSH PRN (09:56)
[2022-01-03] MEDS ORDERED: Iopamidol 755 Mg/ML 100 ML Bottle IV SCH (10:00)
[2022-01-03] MEDS ORDERED: Sodium Chloride 0.9% 100 ML IV SCH (10:00)
[2022-01-03 11:53] VITALS: BP 153/90; PULSE 90
== END 2022-01-03 11:53 | disposition home or self-care (01) ==
LOC: JP.ED 05:09
DX: R07.89 Other chest pain (principal); Q25.44 Congenital dilation of aorta; I10 Essential (primary) hypertension; F10.129 Alcohol abuse with intoxication, unspecified; E66.9 Obesity, unspecified; Z68.37 Body mass index [BMI] 37.0-37.9, adult; Z79.899 Other long term (current) drug therapy; Z88.5 Allergy status to narcotic agent; Z88.7 Allergy status to serum and vaccine; Z88.6 Allergy status to analgesic agent
CPT/HCPCS: 36415; 71275; 80053; 80307; 84484; 85025; 93005; 93010; 96365; 96366; 96375; 99283; 99285; A9270; J1885; J2060; J3480; J3490; J7030; Q9967

== ENCOUNTER 2023-04-26 17:07 | Emergency (ER) | payer OTHER, MEDICAID ==
[2023-04-26 17:35] VITALS: BP 142/79; PULSE 68
[2023-04-26] MEDS ORDERED: Acetaminophen/oxyCODONE 325-10 MG Tab PO PRN (18:29)
[2023-04-26] MEDS ORDERED: Ketorolac 15 MG/ML SDV IM ONE (18:30)
== END 2023-04-26 19:51 | disposition home or self-care (01) ==
LOC: JP.ED 17:07
DX: M25.511 Pain in right shoulder (principal); E78.00 Pure hypercholesterolemia, unspecified; I10 Essential (primary) hypertension; J45.909 Unspecified asthma, uncomplicated; E66.9 Obesity, unspecified; Z79.82 Long term (current) use of aspirin; Z79.899 Other long term (current) drug therapy; Z88.5 Allergy status to narcotic agent; Z88.7 Allergy status to serum and vaccine
CPT/HCPCS: 96372; 99283; A9270; J1885

== ENCOUNTER 2023-05-11 10:53 | Emergency (ER) | payer OTHER, MEDICAID ==
[2023-05-11 11:36] VITALS: BP 166/90; PULSE 65
[2023-05-11] MEDS: oxyCODONE 5 MG Tab PO ONE (13:18)
== END 2023-05-11 15:35 | disposition home or self-care (01) ==
LOC: JP.ED 10:53
DX: S46.001A Unspecified injury of muscle(s) and tendon(s) of the rotator cuff of right shoulder, initial encounter (principal); S42.254D Nondisplaced fracture of greater tuberosity of right humerus, subsequent encounter for fracture with routine healing; E78.00 Pure hypercholesterolemia, unspecified; I10 Essential (primary) hypertension; J45.909 Unspecified asthma, uncomplicated; E66.9 Obesity, unspecified; Z68.39 Body mass index [BMI] 39.0-39.9, adult; Z79.82 Long term (current) use of aspirin; Z79.899 Other long term (current) drug therapy; Z88.5 Allergy status to narcotic agent; Z88.7 Allergy status to serum and vaccine; X50.1XXA Overexertion from prolonged static or awkward postures, initial encounter; Y92.59 Other trade areas as the place of occurrence of the external cause; Y99.0 Civilian activity done for income or pay
CPT/HCPCS: 73030; 99283; A9270

== ENCOUNTER 2023-10-03 08:21 | Day surgery (SDC) | payer OTHER, MEDICAID ==
[2023-10-03] MEDS: Lactated Ringers 1,000 ML IV SCH (08:54)
[2023-10-03] MEDS: Nozin Nasal Sanitizer NASBOTH ONE (08:55)
[2023-10-03 09:05] LABS: A/G RATIO 1.1 (1.2-2.2); ALANINE AMINOTRANSFERASE,ALT 36 U/L (12-78); ALBUMIN 4.1 g/dL (3.4-5.0); ALKALINE PHOSPHATASE 86 U/L (46-116); ASPARTATE AMNIOTRANSFERASE,AST 22 U/L (15-37); BILIRUBIN TOTAL 0.6 mg/dL (0.2-1.0); BLOOD UREA NITROGEN,BUN 18 mg/dL (7-18); CALCIUM 8.9 mg/dL (8.5-10.1); CARBON DIOXIDE,CO2 30 mmol/L (21-32); CHLORIDE,CL 104 mmol/L (100-108); CREATININE 1.2 mg/dL (0.8-1.3); EST CRCL DRUG DOSING (CG) 80.83 mL/min; ESTIMATED GFR 74 mL/min (>60); GLUCOSE RANDOM 103 mg/dL (74-106); POTASSIUM,K 3.5 mmol/L (3.6-5.2); PROTEIN TOTAL,TP 7.7 g/dL (6.4-8.2); SODIUM,NA 144 mmol/L (140-148)
[2023-10-03 09:16] LABS: ANION GAP 13.5 mmol/L (5.0-14.0)
[2023-10-03] MEDS ORDERED: fentaNYL 250 MCG/5 ML SDV ONE (10:53)
[2023-10-03] MEDS ORDERED: Propofol 200 MG/20 ML SDV ONE (10:54)
[2023-10-03] MEDS ORDERED: Sugammadex Sodium 200 MG/2 ML VIAL IV ONE (10:54)
[2023-10-03] MEDS ORDERED: Dexamethasone 4 MG/ML SDV ONE (10:54)
[2023-10-03] MEDS ORDERED: Rocuronium 50 MG/5 ML Vial ONE (10:54)
[2023-10-03] MEDS ORDERED: Ondansetron 4 MG/2 ML SDV ONE (10:54)
[2023-10-03] MEDS ORDERED: Midazolam 1 MG/ML 2 ML SDV ONE (10:54)
[2023-10-03] MEDS ORDERED: Bupivacaine 0.5% 30 ML SDV ONE (10:56)
[2023-10-03] MEDS: Bupivacaine 0.5% 50 ML MDV ONE (11:59)
[2023-10-03] MEDS ORDERED: Glycopyrrolate 0.2 MG/ML 5 ML MDV ONE (12:04)
[2023-10-03] MEDS: ceFAZolin 2 GM in Premix Bag 1 BAG IV ONE (12:23)
[2023-10-03 14:59] VITALS: BP 135/77; PULSE 77
== END 2023-10-03 15:00 | disposition home or self-care (01) ==
LOC: JP.SDS 08:21
PROVIDERS: ATTEND Specialist
DX: S42.254K Nondisplaced fracture of greater tuberosity of right humerus, subsequent encounter for fracture with nonunion (principal); I10 Essential (primary) hypertension; G47.33 Obstructive sleep apnea (adult) (pediatric); J45.909 Unspecified asthma, uncomplicated; K21.9 Gastro-esophageal reflux disease without esophagitis; X58.XXXA Exposure to other specified factors, initial encounter
CPT/HCPCS: 36415; 80053; 85027; A9270-GY; C1713; J0665; J0690; J1100; J2250; J2405; J2704; J3010; J3490; J7120

== ENCOUNTER 2024-10-01 12:11 | Emergency (ER) | payer MEDICAID ==
[2024-10-01 13:22] LABS: BASOPHILS ABSOLUTE AUTO 0.03 K/uL (0.00-0.10); BASOPHILS PERCENT AUTO 0.4 % (0.1-1.3); EOSINOPHILS ABSOLUTE AUTO 0.12 K/uL (0.00-0.40); EOSINOPHILS PERCENT AUTO 1.4 % (0.0-5.4); HEMOGLOBIN 13.9 g/dL (12.9-16.9); IMMATURE GRAN ABSOLUTE AUTO 0.08 K/uL (0.00-0.23); IMMATURE GRAN PERCENT AUTO 0.9 % (0.0-0.7); LYMPHOCYTES ABSOLUTE AUTO 1.45 K/uL (0.8-3.3); MEAN CORPUSCULAR HEMOGLOBIN 30.5 pg (31.6-35.5); MEAN CORPUSCULAR HGB CONC 34.8 g/dL (31.6-35.5); MEAN CORPUSCULAR VOLUME 87.7 fL (81.4-99.0); MONOCYTES ABSOLUTE AUTO 1.02 K/uL (0.20-0.90); MONOCYTES PERCENT AUTO 11.9 % (3.3-12.6); NEUTROPHILS ABSOLUTE AUTO 5.85 K/uL (1.0-7.6); NEUTROPHILS PERCENT AUTO 68.4 % (40.0-78.1); PLATELET COUNT,PLT 289 K/uL (130-375); RED BLOOD CELL COUNT 4.56 M/uL (4.14-5.76); WHITE BLOOD CELL COUNT,WBC 8.6 K/uL (3.2-11.0)
[2024-10-01] MEDS: Sodium Chloride 0.9% 1,000 ML IV ONE (13:24)
[2024-10-01 13:40] LABS: CALCIUM 9.2 mg/dL (8.5-10.1); CREATININE 2.1 mg/dL (0.8-1.3); EST CRCL DRUG DOSING (CG) 47.03 mL/min; POTASSIUM,K 3.4 mmol/L (3.6-5.2)
[2024-10-01 13:42] LABS: ANION GAP 12.4 mmol/L (5.0-14.0)
[2024-10-01 13:46] LABS: LACTIC ACID 1.5 mmol/L (0.4-2.0)
[2024-10-01 14:41] LABS: AMPHETAMINES SCREEN, URINE PRESUMPTIVE POSITIVE (NEGATIVE); BARBITURATE SCREEN,URINE NEGATIVE (NEGATIVE); BENZODIAZEPINES SCREEN,URINE NEGATIVE (NEGATIVE); METHADONE SCREEN, URINE NEGATIVE (NEGATIVE); METHAMPHETAMINES SCREEN, URINE NEGATIVE (NEGATIVE); OXYCODONE SCREEN,URINE NEGATIVE (NEGATIVE); PROPOXYPHENE SCREEN,URINE NEGATIVE (NEGATIVE); THC SCREEN,URINE 50 NG/ML PRESUMPTIVE POSITIVE (NEGATIVE)
[2024-10-01 15:41] VITALS: BP 119/64; PULSE 68
== END 2024-10-01 15:55 | disposition home or self-care (01) ==
LOC: JP.ED 12:11
DX: I95.9 Hypotension, unspecified (principal); E86.0 Dehydration; J44.9 Chronic obstructive pulmonary disease, unspecified; E78.00 Pure hypercholesterolemia, unspecified; I10 Essential (primary) hypertension; E66.9 Obesity, unspecified; Z87.891 Personal history of nicotine dependence; Z79.899 Other long term (current) drug therapy; Z88.5 Allergy status to narcotic agent; Z88.7 Allergy status to serum and vaccine; Z68.39 Body mass index [BMI] 39.0-39.9, adult
CPT/HCPCS: 36415; 71046; 71046-26; 80048; 80305-QW; 80307; 83605; 83735; 84145; 85025; 93005; 96360; 96361; 99285-25; J7030